=== PATIENT | male | born 1950 | race Caucasian/White ===

== ENCOUNTER 2017-05-17 10:17 | Day surgery (SDC) | payer BC ==
[2017-05-17] MEDS ORDERED: Sodium Chloride 0.9% 20 ML ONE (10:37)
[2017-05-17] MEDS ORDERED: diphenhydrAMINE 25 MG CAP PO SCH (11:15)
[2017-05-17] MEDS ORDERED: Acetaminophen 500 MG TAB PO SCH (11:15)
[2017-05-17 17:43] VITALS: BP 148/71; TEMP 98.4
[2017-05-17 18:18] LABS: Band 13 % (5-11); Eosinophils 3 % (0-10); Hemoglobin 9.3 g/dL (14.0-18.0); Lymphocytes 27 % (21-51); MDiff Complete? YES; Macrocytosis SLIGHT = 6-15 cells (100X) (0-5/hpf); Mean Corpuscular HGB CONC 34.1 g/dL (32.0-36.0); Mean Corpuscular Hemoglobin 32.6 pg (27.0-31.0); Mean Corpuscular Volume 95.5 fl (80.0-94.0); Mean Platelet Volume 7.2 fL (7.4-10.4); Metamyelocyte 5 % (0-0); Monocytes 16 % (0-10); Myelocyte 1 % (0-0); Neutrophil 35 % (42-75); PLT Morphology Comment Appears Decreased; Platelet Count 43 thou/uL (130-400); RBC Distribution Width 15.2 % (11.5-14.5); Red Blood Cell (RBC) Count 2.85 mill/uL (4.70-6.10); White Blood Cell (WBC) Count 2.7 thou/uL (4.8-10.8)
== END 2017-05-17 17:34 | disposition home or self-care (01) ==
LOC: ONC/OP 10:17
PROVIDERS: ATTEND Internal Medicine Hematology & Oncology
PROC: 30233N1 Transfusion of Nonautologous Red Blood Cells into Peripheral Vein, Percutaneous Approach (ICD-10-PCS; principal; 2017-05-17)
DX: D64.9 Anemia, unspecified (principal); D69.59 Other secondary thrombocytopenia; Z88.0 Allergy status to penicillin
CPT/HCPCS: 36415; 36430; 80053; 82248; 83615; 84100; 84550; 85025; 86850; 86900; 86901; A4216; P9016; P9035

== ENCOUNTER 2017-05-21 15:17 | Inpatient (IN) | payer BC ==
[~2017-05-21 15:17] MED LIST: ISOVUE-370 76%-LOCM 1 ML ONE
--- NOTE | 2017-05-21 16:23 | CT ---
CT ANGIO OF CHEST WITH CONTRAST: HISTORY: Coughing up blood. History of myeloma. Undergoing chemotherapy. COMPARISON: None. TECHNIQUE: CT angiogram chest performed after the intravenous administration of contrast. Three-D rendering is provided. FINDINGS: Evaluation for pulmonary embolus phase of contrast. There are what appear to be a few peripheral chelsea ling defects in the lower lobe pulmonary arteries likely artifactual. No definite proximal segmental pulmonary arterial filling defect. Aortic contour is nonaneurysmal. Pulmonary trunk measures 32 mm, abnormally dilated. No pericardial effusion. There are coronary artery calcifications, moderate. There are a few flame-shaped areas of central lobular ground-glass and solid opacities in the upper l obes bilaterally, lingula, right middle lobe, and most severe in the right lower lobe suggesting mult ifocal pneumonia. Hemorrhage is also a possibility given the peripheral ground-glass and central mando id component. Upper abdomen evaluation is limited. There are innumerable lytic lucencies throughout the spine. No pathologic compression fracture thora cic spine is appreciated. Lucencies are seen throughout the axial skeleton between the ribs, sternum , and manubrium. Old right 5th rib neck fracture. There is a healing right lateral 7th and 9th rib fractures. Probable old and healing left-sided rib fractures. IMPRESSION: 1. Within the limits of this examination, no proximal segmental pulmonary arterial filling defect. 2. Extensive opacity throughout the upper lobe, lingula, right middle lobe, and lower lobes, worseni ng right lower lobe. The opacities have central solid component peripheral ground-glass. Atypical p rogressive infectious process is felt most likely along with a component of hemorrhage given the yoly pheral ground-glass. 3. Extensive lytic lucencies throughout the axial skeleton corresponding to patient's myeloma. 4. Multiple bilateral rib fractures in different stages of healing. POS: KAYYLN
[2017-05-21] MEDS ORDERED: Cefepime 2 GM/10 ML SYR ONE (16:30)
[2017-05-21] MEDS ORDERED: Acetaminophen 500 MG TAB ONE (16:38)
[2017-05-21] MEDS ORDERED: Azithromycin 500 MG in Sodium Chloride 0.9% 250 ML 250 ML IVPB SCH (16:45)
[2017-05-21] MEDS ORDERED: Ondansetron ODT 4 MG TAB SL PRN (18:01)
[2017-05-21] MEDS ORDERED: Ondansetron HCl/PF 4 MG/2 ML Vial IVP PRN ×2 (18:01→18:49)
[2017-05-21 18:17] LABS: Reticulocyte Count 0.5 % (0.5-1.5)
[2017-05-21 18:18] LABS: Anion Gap 11 mmol/L (10-20); BUN (Urea Nitrogen) 36 mg/dL (8.4-25.7); CRP (Inflammatory) 5.04 mg/dL (= or < 0.5); Calc. Creatinine Clearance 0 mL/min (70-130); Carbon Dioxide 19 mmol/L (23-31); Chloride 108 mmol/L (98-107); Estimated GFR-MDRD 55; Glucose 108 mg/dL (80-115); Magnesium 1.3 mg/dL (1.6-2.6); Potassium 3.6 mmol/L (3.5-5.1); Sodium 134 mmol/L (136-145)
[2017-05-21 18:22] LABS: Hemoglobin 7.5 g/dL (14.0-18.0); Mean Corpuscular HGB CONC 34.7 g/dL (32.0-36.0); Mean Corpuscular Hemoglobin 32.8 pg (27.0-31.0); Mean Corpuscular Volume 94.6 fl (80.0-94.0); Mean Platelet Volume 10.9 fL (7.4-10.4); Platelet Count 11 thou/uL (130-400); RBC Distribution Width 15.4 % (11.5-14.5); White Blood Cell (WBC) Count 0.4 thou/uL (4.8-10.8)
[2017-05-21] MEDS ORDERED: Ondansetron ODT 4 MG TAB PO PRN (18:49)
[2017-05-21] MEDS ORDERED: Mag-Al 1200 mg/1200 mg/30 ML UDCUP PO PRN (18:49)
[2017-05-21] MEDS ORDERED: Senokot 8.6 MG TAB PO PRN (18:49)
[2017-05-21] MEDS ORDERED: Nitroglycerin 0.4 MG TAB (25 Tab Bottle) PO PRN (18:49)
[2017-05-21] MEDS ORDERED: Calcium Carbonate 500 MG ChewTAB PO PRN (18:49)
[2017-05-21] MEDS ORDERED: VANCOMYCIN/ RENALLY ADJUST ANTIBIOTICS IVPB PRN (18:55)
[2017-05-21] MEDS ORDERED: Sodium Chloride 0.9% 1,000 ML IV SCH ×2 (19:00→20:15)
[2017-05-21] MEDS ORDERED: Meropenem 1 GM in Sodium Chloride 0.9% 100 ML IVPB SCH (19:00)
[2017-05-21] MEDS ORDERED: Magnesium 2 GM/NS 0.9% 100 ML 2 GM in Premix Bag 1 BAG IVPB SCH (19:30)
[2017-05-21] MEDS ORDERED: Acetaminophen 325 MG TAB PO PRN (20:44)
[2017-05-21] MEDS ORDERED: Vancomycin HCl 1.25 GM in Sodium Chloride 0.9% 250 ML 250 ML IVPB SCH (21:00)
--- NOTE | 2017-05-21 21:12 | HP ---
PRIMARY CARE PHYSICIAN: Dr. Drake Mckeon at [facility]. PRIMARY ONCOLOGIST: Dr. Hugo. CHIEF COMPLAINT: Generalized weakness with cough and fever. HISTORY OF PRESENT ILLNESS: Patient is a 66-year-old male with multiple myeloma, currently on chemot herapy who presented to the emergency room at [facility] with the above complaints. He was transferred to this facility for hospital admission. Over the past 3-4 weeks, patient has on and off shortness of breath along with intermittent chest shelbie n. He was evaluated by Cardiology, Dr. Lagunas and an outpatient stress test has been ordered. Over the last one week, his shortness of breath is progressively getting worse. It was associated with so me productive cough. He also felt febrile with intermittent chills. Last night, he had hemoptysis. His last chemotherapy was 2 days ago. He also had of PRBC and platelet transfusion earlier this wee k. He denies any nausea, vomiting, diarrhea, dysuria, hematuria, urgency or sick contacts. In the emergency room at [place], his initial vital signs showed temperature 103.4, respiration of 24 , pulse rate of 118 with a blood pressure 161/73 with O2 saturation 94% on room air. His chest x-ray was negative for infiltrate. He received aspirin, sublingual nitroglycerin with IV fluids and merop enem after blood cultures. Flu testing was negative. His CBC showed WBC of 0.8 with platelet count of 15 and hemoglobin of 7.7. His albumin was 2.0 with total protein of 11.9, bicarbonate of 19, BUN of 38, creatinine 1.36. Urinalysis was negative for bacteria or WBC. He was transferred to this [facility] for hospital admission. The case was discussed with the ER physician at [facility] as wel l as Dr. Hugo. At this facility, he underwent a CT angiogram of the chest that showed extensive opacity throughout t he upper lobe lingula, right middle lobe and lower lobe consistent with atypical progressive infectio us process. He also had some component of hemorrhage given and peripheral ground glass. Please note that patient also had some hemoptysis yesterday. PAST MEDICAL HISTORY: 1. Multiple myeloma, currently on chemotherapy. 2. Pancytopenia with intermittent transfusion per Dr. Hugo. 3. Hypertension. 4. Hypothyroidism. 5. History of stem cell transplant. 6. Diverticulosis. 7. Hyperlipidemia. 8. Impaired fasting glucose. PAST SURGICAL HISTORY: 1. Stem cell transplant. 2. Hernia repair. ALLERGIES: PENICILLIN. CURRENT HOME MEDICATIONS: To be verified with the family. He is unable to recall all of his home me dications. SOCIAL HISTORY: Patient currently lives at home with his family. He is independent of activities of daily living. He denies any current use of smoking, alcohol or drug use. FAMILY HISTORY: Mother with congestive heart failure. REVIEW OF SYSTEMS: The following complete review of systems was negative, unless otherwise mentioned in the HPI or below: Constitutional: Weight loss or gain, ability to conduct usual activities. Sk in: Rash, itching. Eyes: Double vision, pain. ENT/Mouth: Nose bleeding, neck stiffness, pain, te nderness. Cardiovascular: Palpitations, dyspnea on exertion, orthopnea. Respiratory: Shortness of breath, wheezing, cough, hemoptysis, fever or night sweats. Gastrointestinal: Poor appetite, abdom inal pain, heartburn, nausea, vomiting, constipation, or diarrhea. Genitourinary: Urgency, frequenc y, dysuria, nocturia. Musculoskeletal: Pain, swelling. Neurologic/Psychiatric: Anxiety, depressio n. Allergy/Immunologic: Skin rash, bleeding tendency. PHYSICAL EXAMINATION: VITAL SIGNS: As discussed above. His temperature at this facility was 102.3. GENERAL: A 66-year-old male, ill appearing. HEENT: Head is atraumatic, normocephalic. Sclerae are anicteric. No oral lesion. NECK: Supple, no JVD appreciated. No carotid bruit. LUNGS: Showed bibasilar crackles with scattered rhonchi. No wheezing. Lungs were symmetrical. Tra richi midline. HEART: S1, S2 present. Regular rate and rhythm. No significant rubs, gallops or murmurs appreciate d. ABDOMEN: Soft, nontender, bowel sounds present. EXTREMITIES: No edema or calf tenderness. NEUROLOGIC: Grossly nonfocal, moves all four extremities. Power was 5/5 in all extremities. PSYCHIATRY: Alert, awake, oriented x3. SKIN: Warm and dry. Several petechiae noted. LYMPH NODES: No palpable lymph nodes in the neck. PERIPHERAL VASCULAR: Radial pulses palpable bilaterally. MUSCULOSKELETAL: No joint swelling or tenderness. LABORATORY FINDINGS: As discussed above. Repeat platelet count at this facility was 11 with WBC of 0.4, reticulocytes 0.5, magnesium 1.3, creatinine of 1.32 with CRP 5.0. IMAGING: CT scan of the chest by my review as discussed above. IMPRESSION: 1. Neutropenic fever/sepsis due to atypical pneumonia. 2. History of multiple myeloma on chemotherapy. 3. Pancytopenia, probably secondary to chemotherapy. 4. Thrombocytopenia with platelet count of 11. 5. Neutropenia with a leukocyte count of 0.4. 6. Hypertension. 7. Hypothyroidism. 8. Metabolic acidosis. 9. Chronic kidney disease stage 3. 10. Moderate protein-calorie malnutrition. 11. Hyponatremia. 12. Elevated inflammatory markers. 13. Hypomagnesemia. 14. Extensive lytic lesion on the CT secondary to multiple myeloma. PLAN: Patient will be monitored in the Oncology Unit. Empiric antibiotics will be continued. We wi ll consult Oncology, Pulmonary and Infectious Disease in a.m. Patient is allergic to PENICILLIN. He received meropenem in the emergency room which will be continued along with vancomycin and azithromy johnny. There is a concern of pulmonary hemorrhage on the CT. Patient also had some hemoptysis earlier . Gentle intravenous hydration. We will also get an echocardiogram since this was planned by Dr. Berenice melvin. We will also add BNP and troponin. We will also get respiratory viral panel to probably rule out influenza. His influenza testing at [place] was negative. Neutropenic diet. Repeat labs in a.m . Plan of care was discussed with the patient and the family in detail, they stated understanding.
[2017-05-21] MEDS: Meropenem 1 GM in Sterile Water 20 ML SLOW IVP SCH (22:06)
[2017-05-21] MEDS: Sodium Chloride 0.65% Nasal 44 ML BOT EA NARE SCH (22:18)
[2017-05-21] MEDS: Famotidine 20 MG TAB PO SCH (22:19)
[2017-05-21 22:27] LABS: Troponin I 0.063 ng/mL (< 0.028)
[2017-05-22] MEDS: Meropenem 1 GM in Sterile Water 20 ML SLOW IVP SCH ×3 (04:00→20:36)
[2017-05-22 04:30] LABS: White Blood Cell (WBC) Count 0.6 thou/uL (4.8-10.8)
[2017-05-22 04:33] LABS: ALT (SGPT) 22 U/L (8-55); AST (SGOT) 15 U/L (5-34); Albumin 1.9 g/dL (3.4-4.8); Alkaline Phosphatase 27 U/L (40-150); Anion Gap 10 mmol/L (10-20); BUN (Urea Nitrogen) 32 mg/dL (8.4-25.7); Bilirubin, Total 0.8 mg/dL (0.2-1.2); Calc. Creatinine Clearance 69 mL/min (70-130); Calcium 7.9 mg/dL (7.8-10.44); Carbon Dioxide 22 mmol/L (23-31); Chloride 108 mmol/L (98-107); Estimated GFR-MDRD 52; Globulin 7.5 g/dL (2.4-3.5); Glucose 99 mg/dL (80-115); Phosphorus 4.1 mg/dL (2.3-4.7); Potassium 3.7 mmol/L (3.5-5.1); Protein, Total 9.4 g/dL (5.8-8.1); Sodium 136 mmol/L (136-145)
[2017-05-22 05:09] LABS: Band 12 % (5-11); Hemoglobin 6.9 g/dL (14.0-18.0); Hypochromia SLIGHT = 6-15 cells (100X) (0-5/hpf); Lymphocytes 20 % (21-51); MDiff Complete? YES; Macrocytosis SLIGHT = 6-15 cells (100X) (0-5/hpf); Mean Corpuscular Hemoglobin 32.3 pg (27.0-31.0); Mean Corpuscular Volume 94.9 fl (80.0-94.0); Mean Platelet Volume 7.7 fL (7.4-10.4); Monocytes 32 % (0-10); Myelocyte 4 % (0-0); Neutrophil 32 % (42-75); Nucleated RBC 1 % (0); PLT Morphology Comment Appears Decreased; Platelet Count 43 thou/uL (130-400); RBC Distribution Width 15.5 % (11.5-14.5); Red Blood Cell (RBC) Count 2.15 mill/uL (4.70-6.10)
[2017-05-22] MEDS: Docusate 100 MG CAP PO SCH (08:44)
[2017-05-22] MEDS: Famotidine 20 MG TAB PO SCH ×2 (08:44→21:05)
[2017-05-22] MEDS: Sodium Chloride 0.65% Nasal 44 ML BOT EA NARE SCH ×3 (08:44→20:45)
[2017-05-22] MEDS: Vancomycin HCl 1 GM in Premix Bag 1 BAG IVPB SCH ×2 (08:45→20:43)
[2017-05-22] MEDS ORDERED: FLU VACC QS2017-18 36 mo. & older 0.5 ML SYRINGE IM ONE (09:00)
[2017-05-22] MEDS ORDERED: Prevnar 13-Val Conj/PF 0.5 ML SYRINGE IM ONE (09:00)
[2017-05-22] MEDS: Acetaminophen 325 MG TAB PO PRN ×2 (15:41)
--- NOTE | 2017-05-22 16:18 | PDOC.PN ---
- Subjective Encounter Start Date: 05/22/17 Encounter Start Time: 11:00 Patient seen and examined. Feels somewhat better. No CP/palpitations. No overnight events - Objective Resuscitation Status: Resuscitation Status FULL:Full Resuscitation MAR Reviewed: Yes Vital Signs & Weight: Vital Signs (12 hours) Temp Pulse Pulse Resp BP BP Pulse Ox 05/22/17 16:13 100 24 H 05/22/17 15:53 100.4 F H 102 H 28 H 134/63 97 05/22/17 15:50 100.4 F H 102 H 28 H 134/63 98 05/22/17 15:35 101 F H 100 28 H 130/60 97 05/22/17 12:12 22 H 05/22/17 12:00 97.8 F 100 28 H 137/65 98 05/22/17 08:00 98.5 F 96 20 95 05/22/17 07:25 98.5 F 96 20 140/65 95 Weight Admit Weight 198 lb Weight 198 lb I&O: 05/21/17 05/22/17 05/23/17 06:59 06:59 06:59 Intake Total 440 0 Output Total 1200 Balance -760 0 Result Diagrams: 05/22/17 03:57 05/22/17 03:57 Phys Exam - Physical Examination Constitutional: NAD (ill appearing) Neck: no JVD Respiratory: no wheezing Scat rhonchi/rales, Symmetrical Cardiovascular: RRR, no rub no heaves/pulsations Gastrointestinal: soft, non-tender, no distention, positive bowel sounds Musculoskeletal: no edema Neurological: moves all 4 limbs Psychiatric: normal affect, A&O x 3 Dx/Plan - Plan plan discussed w/ family, continue antibiotics, PT/OT, DVT proph w/SCDs (no Heparin due to low plts) IMPRESSION: 1. Neutropenic fever/sepsis due to atypical pneumonia & UTI. on Vanc/ Azithromycin/Meropenem 2. History of multiple myeloma on chemotherapy. 3. Pancytopenia, probably secondary to chemotherapy. (Anemia/Thrombocytopenia/ Neutropenia) 4. Hemoptysis - due to #1 & thrombocytopenia 5. Elevated BNP - r/o CHF. Elevated troponins prob due to sepsis 6. Hypertension. 7. Hypothyroidism. 8. Metabolic acidosis. 9. Chronic kidney disease stage 3. 10. Moderate protein-calorie malnutrition. 11. Hyponatremia. 12. Elevated inflammatory markers. 13. Hypomagnesemia. 14. Extensive lytic lesion on the CT secondary to multiple myeloma. PLAN: * Blood cultures at [facility] - pending. Urine culture today showing >100K GNR * Cont Atbx * Transfuse 1 unit PRBC * GSF today per Onc * Await ID/Pulm input * Cont to monitor * Resume home meds. * Await Echo. * AM labs * Resume Levothyroxine/[place] Review of Systems - Review of Systems Respiratory: Cough, Sputum Cardiovascular: negative: chest pain, palpitations, orthopnea, paroxysmal nocturnal dyspnea, edema, light headedness Gastrointestinal: negative: Nausea, Vomiting, Abdominal Pain, Diarrhea, Constipation, Melena, Hematochezia - Medications/Allergies Allergies/Adverse Reactions: Allergies Allergy/AdvReac Type Severity Reaction Status Date / Time Penicillins Allergy Verified 05/21/17 19:38 Medications: Current Medications Acetaminophen (Tylenol) 650 mg PO Q4H PRN PRN Reason: Headache/Fever or Pain Last Admin: 05/22/17 15:41 Dose: 650 mg Hydrocodone Bitart/Acetaminophen ([place] 5/325) 1 tab PO Q6HR PRN PRN Reason: Severe Pain (7-10) Al Hydroxide/Mg Hydroxide (Maalox) 30 ml PO Q6H PRN PRN Reason: Heartburn or Indigestion Calcium Carbonate (Tums) 1,000 mg PO Q4H PRN PRN Reason: Heartburn or Indigestion Docusate Sodium (Colace) 100 mg PO DAILY [facility] Last Admin: 05/22/17 08:44 Dose: 100 mg Famotidine (Pepcid) 20 mg PO BID [facility] Last Admin: 05/22/17 08:44 Dose: 20 mg Azithromycin 500 mg/ Sodium (Chloride) 250 mls @ 250 mls/hr IVPB 1700 [facility] Vancomycin HCl 1 gm/ Device 200 mls @ 200 mls/hr IVPB Q12HR [facility] Last Admin: 05/22/17 08:45 Dose: 200 mls Meropenem 1 gm/ Sterile Water 20 mls @ 240 mls/hr SLOW IVP 0400,1200,2000 [facility] Last Admin: 05/22/17 12:01 Dose: 20 mls Sodium Chloride (Normal Saline 0.9%) 1,000 mls @ 50 mls/hr IV .Q20H [facility] Levothyroxine Sodium (Synthroid) 25 mcg PO 0600 [facility] Miscellaneous Medication (Pharmacy To Dose) 1 each IVPB PRN PRN PRN Reason: Pharmacy to dose Nitroglycerin (Nitrostat) 0.4 mg PO Q5MIN PRN PRN Reason: Chest Pain Ondansetron HCl (Zofran Odt) 4 mg PO Q6H PRN PRN Reason: Nausea/Vomiting Ondansetron HCl (Zofran) 4 mg IVP Q6H PRN PRN Reason: Nausea/Vomiting Senna (Senokot) 2 tab PO HSPRN PRN PRN Reason: Constipation Sodium Chloride (Flush - Normal Saline) 10 ml IVF PRN PRN PRN Reason: Saline Flush Last Admin: 05/22/17 04:00 Dose: 10 ml Sodium Chloride ([place] Nasal [place] 0.65%) 0 ml EA NARE TID [facility] Last Admin: 05/22/17 15:29 Dose: 1 spr Sodium Chloride (Flush - Normal Saline) 10 ml IVF Q12HR [facility] Last Admin: 05/22/17 08:45 Dose: Not Given Tbo-Filgrastim (Granix) 480 mcg SC 1500 [facility] Last Admin: 05/22/17 15:28 Dose: 480 mcg Valacyclovir HCl (Valtrex) 500 mg PO DAILY [facility]
--- NOTE | 2017-05-22 17:05 | CON ---
DATE OF CONSULTATION: 05/22/2017 REASON FOR CONSULTATION: Multiple myeloma with neutropenic fever. HISTORY OF PRESENT ILLNESS: Mr. Childers is a pleasant 66-year-old male, who was diagnosed originally in 2006 with multiple myeloma. He has undergone multiple treatments including stem cell transplant. Fritz laura most recently progressed with anemia and increasing IgG. He was started on Kyprolis, Revlimid, and dexamethasone. He received cycle #1 on 05/18/2017 and 05/19/2017. Yesterday he presented to the em ergency room with progressive shortness of breath. He was noted to be pancytopenic. Mr. Childers's coun ts were significantly lower at starting Kyprolis. His baseline white count was 2.6. He had hemoglob in of 8.6 and platelet count of 50. On this admission, his white count was 0.4, hemoglobin was 7.5, and his platelet count was 11,000. He did get transfused 1 unit of platelets. His white count is be tter today at 0.6. His platelet count has dropped slightly to 6.9. He has been started on empiric a ntibiotics and given IV fluids, has been pancultured. He had a chest CT performed which was signific ant for an infectious process, likely pneumonia. The patient's temperature was elevated at the [facility] ER. Since this admission, his highest temperature has been 100.6. PAST MEDICAL HISTORY: 1. Multiple myeloma. 2. Hypertension. 3. Hypothyroidism. PAST SURGICAL HISTORY: 1. Stem cell transplant. 2. Hernia repair. ALLERGIES: PENICILLIN. HOME MEDICATIONS: 1. Norvasc 10 mg daily. 2. Hydrochlorothiazide 12.5 mg on Wednesday, Wednesday, and Wednesday. 3. [place] p.r.n. 4. Levothyroxine 25 mcg daily. 5. Valtrex 500 mg daily. FAMILY HISTORY: Noncontributory. SOCIAL HISTORY: He is , has grown children, lives with his spouse in [place]. No alcohol, to bacco, or illicit drug use. REVIEW OF SYSTEMS: CONSTITUTIONAL: Positive for fever, chills, and weight loss. EYES: No blurred or double vision. ENT: No pain, hoarseness, sore throat, or dysphagia. CARDIOVASCULAR: No chest pain, palpitations, or syncope. RESPIRATORY: Positive for shortness of breath and dyspnea on exertion and cough. GASTROINTESTINAL: No nausea, vomiting, diarrhea, constipation, or abdominal pain. GENITOURINARY: No dysuria or hematuria. MUSCULOSKELETAL: No joint or back pain. SKIN: No rash. HEMATOLOGIC: No bleeding, bruising, or clotting. NEUROLOGIC: Positive for weakness. No headache, numbness, tingling, or seizure activity. PSYCHIATRIC: No anxiety or depression. PHYSICAL EXAMINATION: VITAL SIGNS: Temperature is 97.8, pulse is 100, respiratory rate 22, BP is 137/65. He is 98% on 2 l iters. GENERAL: This is an ill-appearing male, in no acute distress. HEENT: Normocephalic, atraumatic. Pupils are equal and reactive to light. NECK: Supple. CARDIOVASCULAR: Regular rate and rhythm. LUNGS: Clear. ABDOMEN: Soft and nontender. Bowel sounds are positive. EXTREMITIES: No clubbing, cyanosis, or edema. SKIN: No rash. HEMATOLOGICAL: There is no petechia or purpura. NEUROLOGICAL: Nonfocal. PSYCHIATRIC: The patient is alert and oriented and appropriate. PERTINENT LABORATORY AND X-RAYS: Current WBC 600, hemoglobin 6.9, hematocrit 20.4, platelet count is 43,000, 32% neutrophils, 12% bands, 20% lymphocytes, 32% monocytes. Sodium is 136, potassium 3.7, c hloride 108, CO2 is 22, BUN is 32, creatinine 1.37. Lactic acid is 1, calcium 7.5, phosphorus 4.1, m agnesium 2, total bilirubin is 0.8, AST is 15, ALT is 22, alkaline phosphatase is 27. Troponin is 0. 063. BNP is 603.5. Serum total protein is 9.4, albumin 1.9, globulin 7.5. Radiology, per HPI. IMPRESSION: 1. Multiple myeloma, status post cycle #1 of Kyprolis, Revlimid, and dexamethasone. 2. Pancytopenia. 3. Neutropenic fever. 4. Pneumonia. DISCUSSION: The patient has been started on empiric antibiotics including cefepime and vancomycin. We will start Neupogen injection today and monitor his CBC. We transfused 1 unit of packed RBCs yest rose. ID has been consulted and appreciate their input, appreciated Sounds management. Thank you for the consult.
--- NOTE | 2017-05-22 18:05 | CON ---
DATE OF CONSULTATION: 05/22/2017 CONSULTING PHYSICIAN: Dr. Rutherford. REASON FOR CONSULTATION: Atypical pneumonia. HISTORY OF PRESENT ILLNESS: This is a 66-year-old male who provides history along with his . I have also reviewed records and the chart. He was brought to this facility from the [facility] room yesterday with a brief history of increasing shortness of breath and chest pain. He diamond s been coughing up blood over the last several days. He has been taking chemotherapy twice a week fo r the last several weeks for multiple myeloma. He was admitted with neutropenic sepsis and atypical infiltrates on a CT scan. He says he has never had problems with his lungs in the past. PAST MEDICAL HISTORY: 1. Multiple myeloma. 2. Pancytopenia, requiring intermittent transfusions. 3. Hypertension. 4. Hypothyroidism. 5. Stem cell transplant for the myeloma. 6. Diverticulosis. 7. Hyperlipidemia. PAST SURGICAL HISTORY: 1. Stem cell transplant. 2. Hernia repair. ALLERGIES: PENICILLIN. SOCIAL HISTORY: He is a lifetime nonsmoker, does not consume alcohol. 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 OUTPATIENT MEDICATIONS: Levothyroxine 25 mcg daily, Byers 1-2 tablets every 4 hours as needed, Norva sc 10 mg daily, Valtrex 500 mg daily, hydrochlorothiazide 12.5 mg 3 times weekly. ALLERGIES: PENICILLIN. REVIEW OF SYSTEMS: Remarkable for the hemoptysis, fatigue. Otherwise, 12-point review of systems is negative. PHYSICAL EXAMINATION: VITAL SIGNS: Temperature 97.8 with a T-max of 100.6, pulse 100, respirations 22, O2 saturation 98%, blood pressure 137/65. GENERAL: He is lying supine in bed, does not appear to be in any overt distress. HEENT: Unremarkable except for alopecia. Oropharynx shows no lesions. NECK: Without adenopathy, JVD, or bruits. LUNGS: He has inspiratory crackles bilaterally heard best posteriorly. CARDIOVASCULAR: S1, S2 regular, without murmur. ABDOMEN: Soft and nontender without hepatosplenomegaly. EXTREMITIES: No clubbing, cyanosis, or edema. He has bruising over his left arm. NEUROLOGIC: He moves all 4 extremities without difficulty. LABORATORY DATA: White blood cell count 0.6, hemoglobin 6.9, hematocrit 20.4, platelet count 43. So dium 136, potassium 3.7, chloride 108, CO2 is 22, BUN 32, creatinine 1.4, glucose 99. His chest x-ray shows atypical infiltrative changes bilaterally in a bronchocentric pattern. This ma y be indicative of focal bleeding or perhaps pneumonitis, there is more concentrated area in the righ t lower lobe. ASSESSMENT: 1. Neutropenic sepsis with bilateral pneumonia versus alveolar hemorrhage. 2. Multiple myeloma. 3. Status post chemotherapy. PLAN: The patient is already started antibiotics which would decrease any ill by bronchoscopy. He i s currently on azithromycin, meropenem, and vancomycin. He is going to be seen by Dr. Vazquez at some point. The patient is already improved in the first 12 hours of therapy. He is also receiving Neupo gen and for some reason, he suffers a setback then bronchoscopy can be entertained. If Dr. Vazquez fee ls strongly that other atypical entities need to be ruled out at this time, I could proceed with bron choscopy. I will follow with you. Thank you for allowing me to participate in this gentleman's care.
[2017-05-22] MEDS: Azithromycin 500 MG in Sodium Chloride 0.9% 250 ML 250 ML IVPB SCH (18:37)
[2017-05-22 18:45] LABS: Legionella Urinary Ag Negative (Negative); Strep pneumo Urine Ag NEGATIVE (NEGATIVE)
[2017-05-22] MEDS: Sodium Chloride 0.9% 1,000 ML IV SCH ×3 (20:36→21:42)
[2017-05-23] MEDS: Meropenem 1 GM in Sterile Water 20 ML SLOW IVP SCH ×3 (03:54→20:16)
[2017-05-23 06:05] LABS: ALT (SGPT) 16 U/L (8-55); AST (SGOT) 12 U/L (5-34); Albumin 1.8 g/dL (3.4-4.8); Alkaline Phosphatase 27 U/L (40-150); Anion Gap 9 mmol/L (10-20); BUN (Urea Nitrogen) 29 mg/dL (8.4-25.7); Band 36 % (5-11); Bilirubin, Total 0.7 mg/dL (0.2-1.2); Calc. Creatinine Clearance 79 mL/min (70-130); Calcium 8.2 mg/dL (7.8-10.44); Carbon Dioxide 22 mmol/L (23-31); Chloride 109 mmol/L (98-107); Estimated GFR-MDRD 60; Globulin 6.9 g/dL (2.4-3.5); Glucose 109 mg/dL (80-115); Hemoglobin 6.5 g/dL (14.0-18.0); Hypochromia SLIGHT = 6-15 cells (100X) (0-5/hpf); Lymphocytes 24 % (21-51); MDiff Complete? YES; Magnesium 1.7 mg/dL (1.6-2.6); Mean Corpuscular HGB CONC 34.1 g/dL (32.0-36.0); Mean Corpuscular Hemoglobin 32.5 pg (27.0-31.0); Mean Corpuscular Volume 95.2 fl (80.0-94.0); Monocytes 20 % (0-10); Neutrophil 20 % (42-75); Nucleated RBC 1 % (0); PLT Morphology Comment Appears Decreased; Platelet Count 34 thou/uL (130-400); Potassium 3.3 mmol/L (3.5-5.1); Protein, Total 8.7 g/dL (5.8-8.1); RBC Distribution Width 15.1 % (11.5-14.5); Red Blood Cell (RBC) Count 1.99 mill/uL (4.70-6.10); Sodium 137 mmol/L (136-145); White Blood Cell (WBC) Count 1.3 thou/uL (4.8-10.8)
[2017-05-23] MEDS: Levothyroxine Sodium 25 MCG TAB PO SCH (06:14)
--- NOTE | 2017-05-23 07:54 | PDOC.PN ---
- Subjective Encounter Start Date: 05/23/17 Encounter Start Time: 07:53 Mr. Childers was seen in follow-up today. He says he is breathing a bit better today. He admits to having a large dark stool last night. He is also still feeling very fatigued. - Objective Resuscitation Status: Resuscitation Status FULL:Full Resuscitation MAR Reviewed: Yes Vital Signs & Weight: Vital Signs (12 hours) Temp Pulse Resp BP BP Pulse Ox 05/23/17 04:00 98.5 F 96 23 H 136/65 95 05/23/17 00:00 98.7 F 92 18 128/64 97 05/22/17 20:00 99.6 F 87 22 H 128/62 97 Weight Admit Weight 198 lb Weight 200 lb 7 oz I&O: 05/22/17 05/23/17 05/24/17 06:59 06:59 06:59 Intake Total 440 2500 Output Total 1200 700 Balance -760 1800 Result Diagrams: 05/23/17 05:24 05/23/17 05:24 Phys Exam - Physical Examination HEENT: PERRLA Respiratory: no wheezing, no rales, no rhonchi, clear to auscultation bilateral Cardiovascular: RRR, no significant murmur Gastrointestinal: soft, non-tender, positive bowel sounds Musculoskeletal: no edema Dx/Plan (1) Neutropenic fever Code(s): D70.9 - NEUTROPENIA, UNSPECIFIED; R50.81 - FEVER PRESENTING WITH CONDITIONS CLASSIFIED ELSEWHERE Status: Acute (2) Pneumonia, primary atypical Code(s): J18.9 - PNEUMONIA, UNSPECIFIED ORGANISM Status: Acute (3) Multiple myeloma Code(s): C90.00 - MULTIPLE MYELOMA NOT HAVING ACHIEVED REMISSION Status: Acute (4) Hypertension Code(s): I10 - ESSENTIAL (PRIMARY) HYPERTENSION Status: Acute (5) Hypothyroidism Code(s): E03.9 - HYPOTHYROIDISM, UNSPECIFIED Status: Acute (6) Pancytopenia due to antineoplastic chemotherapy Code(s): D61.810 - ANTINEOPLASTIC CHEMOTHERAPY INDUCED PANCYTOPENIA; T45.1X5A - ADVERSE EFFECT OF ANTINEOPLASTIC AND IMMUNOSUP DRUGS, INIT Status: Acute - Plan * Pancytopenia- his WBC count and platelet count have improved, but not his hemoglobin. He was reported to have a large dark stool. Will send is stool for occult blood. Transfuse another unit of RBC's and change Pepcid to Protonix * Pneumonia- improving clinically, less fever, - continue Vancomycin , Meropenem , and Azithromycin * HTN- blood pressure is stable * Hypokalemia- will replace.
[2017-05-23] MEDS ORDERED: Potassium Chloride 20 MEQ TAB PO SCH (08:00)
[2017-05-23 08:28] LABS: Vancomycin, Trough 12.5 ug/mL
[2017-05-23] MEDS: valACYclovir 500 MG TAB PO SCH (09:20)
[2017-05-23] MEDS: Docusate 100 MG CAP PO SCH (09:21)
[2017-05-23] MEDS: Sodium Chloride 0.65% Nasal 44 ML BOT EA NARE SCH ×3 (09:22→20:18)
[2017-05-23] MEDS: Vancomycin HCl 1.25 GM in Sodium Chloride 0.9% 250 ML 250 ML IVPB SCH ×2 (09:26→20:23)
--- NOTE | 2017-05-23 15:52 | PRG ---
DATE OF SERVICE: 05/23/2017 SUBJECTIVE: The patient feels much better today and had no acute complaints. PHYSICAL EXAMINATION: VITAL SIGNS: Temperature 97.9, pulse 82, respirations 20, O2 sat 98%, blood pressure 129/60. HEENT: Unremarkable. NECK: No JVD. LUNGS: Clear. CARDIAC: S1 and S2 regular. ABDOMEN: Soft. EXTREMITIES: No edema. LABORATORY DATA: White blood cell count , hemoglobin 6.5, hematocrit 19.0, and platelet count 3 4. Sodium 137, potassium 3.3, chloride 109, CO2 22, BUN 29, creatinine 1.2, and glucose 109. ASSESSMENT: Neutropenic sepsis with pneumonia. PLAN: Continue current antibiotics. Consider bronchoscopy if he has a setback, but right now he see ms to be progressing in the correct direction.
[2017-05-23] MEDS: Azithromycin 500 MG in Sodium Chloride 0.9% 250 ML 250 ML IVPB SCH (17:23)
[2017-05-23] MEDS: Sodium Chloride 0.9% 1,000 ML IV SCH (20:14)
--- NOTE | 2017-05-23 21:22 | CON ---
DATE OF CONSULTATION: 05/23/2017 REASON FOR CONSULTATION: Pneumonia. HISTORY OF PRESENT ILLNESS: A 66-year-old patient was diagnosed with multiple myeloma a few years ag o at [facility] by Dr. Rubio. She was then referred to [facility], had 2 st em cell transplants back to back and did well for a while. He subsequently developed recrudescence o f the process and was treated by Dr. Smith in [place], eventually transitioned to Dr. Hugo here in [facility]. He basically gets treatment whenever there is exacerbation of the process by monitoring via the usual settings. The patient more recently had been receiving Revlimid as well as carfilzomib, w hich is a proteasome inhibitor and Decadron. 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 He w as seen by Cardiology and an outpatient stress test had been ordered, but then the dyspnea became wor se with some productive cough and then he had temperature up to 104 and was admitted. This was assoc iated with worsening cough and hemoptysis. Initial findings showed temperature of 103.4, respiratory rate 24, pulse rate 118, BP 160/73 and O2 sat 94%. He had initial chest x-ray which did not show an y infiltrates. He was started on meropenem. Influenza test was negative. White cell count 0.8, berna telet count 15,000, hemoglobin 7.7, creatinine 1.36. Urinalysis showed no wbcs. The initial exam, t he patient was alert and oriented. There were bibasilar inspiratory crackles and rhonchi. The heart exam was not particularly remarkable. Abdomen was soft, nontender. He was able to move all 4 extre mities. Currently, Mr. Childers is sleeping and according to the , he is able to wake up, but he did not sleep very well last night because of worsening cough with increased sputum production. He has had no headaches, no sore throat, odynophagia, dysphagia, no back pain, chest pain, and has not recur red. He has had some hemoptysis still. Dyspnea has improved. No abdominal pain, no genitourinary s ymptoms, no diarrhea, no joint symptoms or skin disorder. PAST MEDICAL HISTORY: Multiple myeloma with prior 2 stem cell transplants, currently on chemotherapy after recurrence, hypertension, hypothyroidism, pancytopenia, diverticulosis, and hyperlipidemia. PAST SURGICAL HISTORY: Also includes hernia repair. ALLERGIES: PENICILLIN with rash. CURRENT MEDICATIONS: Tylenol, Grundy, Maalox, azithromycin, Tums, Colace, Synthroid, meropenem, Nitro stat, Zofran, Protonix, Senokot, Granix, Valtrex and vancomycin. SOCIAL HISTORY: Lives in [place], had been working up until just about a week and half ago. FAMILY HISTORY: Noncontributory. PHYSICAL EXAMINATION: VITAL SIGNS: Temperature max 101.0 yesterday at 3 p.m., it is currently 97.9, blood pressure 120/60, pulse 18-20, and O2 saturation 98%. SKIN: Shows a few petechiae, bruises on upper extremities. Patient has a peripheral IV access. No Oshea catheter, alopecia. HEENT: Ocular movements are conjugate. Sclerae white. Pupils are reactive. Conjunctivae pale. Or al cavity, moist mucosa, no thrush. Still quite a few teeth in place. NECK: Supple, no jugular venous distention or carotid bruits. LUNGS: With fairly symmetric breath sounds, a few scattered inspiratory crackles in dependent areas. No rhonchi. HEART: S1, S2, regular rate. No S3 or S4. ABDOMEN: Soft and not distended or tender. No ascites. No bladder distention. EXTREMITIES: No joint inflammatory activity. No edema. Pulses 1+ in dorsalis pedis. NEUROLOGIC: She is diffusely weak, but no focal weakness. He is sleeping at the time, but according to His cognitive function appears to be normal, as recently as just a couple of hours ago. LABORATORY DATA: Showed a white cell count up to 1.3, hemoglobin 6.5, MCV 95, platelets 34,000, and 20% neutrophils, 36% bands. Sodium 137, creatinine 1.21. Liver profile normal. Albumin 1.8, globul in 6.9. Vancomycin trough 12.5. Legionella haemophilus and strep pneumonia antigen negative. Respi ratory virus PCR negative. The CT of chest demonstrated bilateral diffuse subsegmental pulmonary inf iltrates, upper lobe lingula, right middle lobe and lower lobes, have a central solid component of pe ripheral ground-glass and extensive lytic lucencies throughout axial skeleton. ASSESSMENT: 1. Multiple myeloma, status post prior stem cell transplants x2, now with recrudescence being manage d with proteasome inhibitor plus Revlimid and Decadron. 2. Pancytopenia. 3. Fever with pneumonia. DISCUSSION: Differential diagnoses includes bacterial pneumonia with the usual pathogens were more o r some sort of less common pathogens associated with neutropenic status versus an atypical pathogen s uch as a fungal organism or mycobacterial pathogen. Pneumocystis is a concern, but appears to be les s likely in view of the early improvement with the current treatment. Pulmonary hemorrhage is a poss ibility, may be an additional factor in the infiltrates noted on CT scan. The proteasome inhibitor s eems to be associated with pneumonia. This probably is secondary consequence of the pancytopenia ind uced by the drug as well as the general immune deficiency associated with multiple myeloma. At this point, we will continue treatment with broad spectrum coverage as currently prescribed. We will subm it assays for pneumocystis and various other fungal pathogens and cytomegalovirus assays as well. If there is recrudescence of the respiratory symptoms for fever, then we will have to add antifungal co verage and may have to consider antipneumocystis coverage as well.
[2017-05-24] MEDS: Acetaminophen 325 MG TAB PO PRN (00:03)
[2017-05-24] MEDS: HYDROcodone/Acetaminophen 5/325 mg Tablet PO PRN ×3 (03:42→22:34)
[2017-05-24] MEDS: Meropenem 1 GM in Sterile Water 20 ML SLOW IVP SCH ×3 (03:44→20:35)
[2017-05-24] MEDS: Levothyroxine Sodium 25 MCG TAB PO SCH (05:57)
[2017-05-24 05:59] LABS: Hemoglobin 6.8 g/dL (14.0-18.0); Mean Corpuscular HGB CONC 33.6 g/dL (32.0-36.0); Mean Corpuscular Hemoglobin 31.4 pg (27.0-31.0); Mean Corpuscular Volume 93.3 fl (80.0-94.0); Mean Platelet Volume 9.4 fL (7.4-10.4); Platelet Count 24 thou/uL (130-400); RBC Distribution Width 17.3 % (11.5-14.5); Red Blood Cell (RBC) Count 2.18 mill/uL (4.70-6.10)
[2017-05-24 06:08] LABS: ALT (SGPT) 24 U/L (8-55); AST (SGOT) 18 U/L (5-34); Albumin 1.8 g/dL (3.4-4.8); Alkaline Phosphatase 32 U/L (40-150); Anion Gap 10 mmol/L (10-20); BUN (Urea Nitrogen) 31 mg/dL (8.4-25.7); Bilirubin, Total 0.5 mg/dL (0.2-1.2); Calc. Creatinine Clearance 84 mL/min (70-130); Calcium 8.3 mg/dL (7.8-10.44); Carbon Dioxide 21 mmol/L (23-31); Chloride 112 mmol/L (98-107); Estimated GFR-MDRD 65; Globulin 7.1 g/dL (2.4-3.5); Glucose 102 mg/dL (80-115); Potassium 3.7 mmol/L (3.5-5.1); Protein, Total 8.9 g/dL (5.8-8.1); Sodium 139 mmol/L (136-145)
[2017-05-24 06:25] LABS: Band 8 % (5-11); Lymphocytes 20 % (21-51); MDiff Complete? YES; Metamyelocyte 1 % (0-0); Monocytes 5 % (0-10); Neutrophil 65 % (42-75); PLT Morphology Comment Appears Decreased
--- NOTE | 2017-05-24 07:27 | PDOC.PN ---
- Subjective Encounter Start Date: 05/24/17 Encounter Start Time: 07:25 Mr. Childers says that he is feeling a little better. He is less short of breath. His cough is less. He sat up at the side of the bed without problems. - Objective Resuscitation Status: Resuscitation Status FULL:Full Resuscitation MAR Reviewed: Yes Vital Signs & Weight: Vital Signs (12 hours) Temp Pulse Resp BP BP Pulse Ox 05/24/17 03:39 98.3 F 75 16 146/79 H 97 05/23/17 23:51 98.2 F 87 20 137/68 97 05/23/17 20:00 98.7 F 87 16 97 Weight Admit Weight 198 lb Weight 200 lb 7 oz I&O: 05/23/17 05/24/17 05/25/17 06:59 06:59 06:59 Intake Total 2500 3830 Output Total 700 925 Balance 1800 2905 Result Diagrams: 05/24/17 05:32 05/24/17 05:32 Phys Exam - Physical Examination HEENT: PERRLA Respiratory: wheezing present + rhonchi bilaterally Cardiovascular: RRR, no significant murmur Gastrointestinal: soft, non-tender, positive bowel sounds Musculoskeletal: no edema Dx/Plan (1) Neutropenic fever Code(s): D70.9 - NEUTROPENIA, UNSPECIFIED; R50.81 - FEVER PRESENTING WITH CONDITIONS CLASSIFIED ELSEWHERE Status: Acute (2) Pneumonia, primary atypical Code(s): J18.9 - PNEUMONIA, UNSPECIFIED ORGANISM Status: Acute (3) Multiple myeloma Code(s): C90.00 - MULTIPLE MYELOMA NOT HAVING ACHIEVED REMISSION Status: Acute (4) Hypertension Code(s): I10 - ESSENTIAL (PRIMARY) HYPERTENSION Status: Acute (5) Hypothyroidism Code(s): E03.9 - HYPOTHYROIDISM, UNSPECIFIED Status: Acute (6) Pancytopenia due to antineoplastic chemotherapy Code(s): D61.810 - ANTINEOPLASTIC CHEMOTHERAPY INDUCED PANCYTOPENIA; T45.1X5A - ADVERSE EFFECT OF ANTINEOPLASTIC AND IMMUNOSUP DRUGS, INIT Status: Acute - Plan * Neutropenic fever due to Pneumonia- ID recommendations noted.-Continue Meropenem, Vancomycin, and Azithromycin * Neutropenia- improving * Thrombocytopenia- slightly worse- will monitor * Anemia- Hgb is at 6.8- will hold off on transfusion today, unless instructed to by Oncology * HTN- blood pressure is stable * Hypothyroidism- clinically euthyroid
[2017-05-24] MEDS: Vancomycin HCl 1.25 GM in Sodium Chloride 0.9% 250 ML 250 ML IVPB SCH ×2 (09:28→20:38)
[2017-05-24] MEDS: valACYclovir 500 MG TAB PO SCH (09:30)
[2017-05-24] MEDS: Docusate 100 MG CAP PO SCH (09:30)
[2017-05-24] MEDS: Sodium Chloride 0.65% Nasal 44 ML BOT EA NARE SCH ×3 (09:31→20:43)
--- NOTE | 2017-05-24 10:40 | PRG ---
DATE OF SERVICE: 05/24/2017 He is up and walking the halls today and looks good. PHYSICAL EXAMINATION: VITAL SIGNS: His temperature is 97.3, pulse 79, respiratory 20, O2 sat 95%, blood pressure 148/77. HEENT: Unremarkable. NECK: No JVD. LUNGS: Distant breath sounds, but clear. CARDIAC: S1 and S2 regular. ABDOMEN: Soft. EXTREMITIES: No edema. LABORATORY: White blood cell count 2, hematocrit 20, platelet count 24. Sodium 139, potassium 2.7, BUN 31, creatinine 1.1, glucose 102. Cultures demonstrate no growth to date. ASSESSMENT: Neutropenic sepsis. PLAN: Continue current antibiotics. Dr. Vazquez is seeing the patient. At some point he will need a follow up x-ray in 2-3 weeks. I will follow him with you.
--- NOTE | 2017-05-24 16:44 | PRG ---
DATE OF SERVICE: 05/24/2017 SUBJECTIVE: Sitting up, feels more energetic, little bit of loose stool. No respiratory symptoms. No abdominal pain. Voiding without difficulty. OBJECTIVE: VITAL SIGNS: T-max 98.6, has been afebrile for quite a while now. All other vital signs are not rem arkable. GENERAL: Awake, chronically ill appearing, but in no acute distress, oriented. LUNGS: With faint left basilar crackles, otherwise clear. No wheezing. HEART: S1, S2, regular rate. ABDOMEN: Slightly distended, but nontender. GENITOURINARY: No bladder distention. LABORATORY DATA: White cell count up to 2.0, hemoglobin 6.8, platelets 24. The total neutrophil count is improving, it is up to about 1500 at this time. Sodium 139, creatinine 1.14, which is improving as well. Respiratory-jain, PCR negative, cryptococcus antigen, serum negat juan carlos and the other assays are pending. ASSESSMENT AND DISCUSSION: Multiple myeloma and stem-cell transplants x2, now recrudescence being ma naged with proteasome inhibitor plus Revlimid and Decadron. Pancytopenia and fever with pneumonia. There is clear cut clinical improvement, so we must be dealing just with a bacterial pneumonia, which is responding to the antimicrobial regimen administered. The white cell count is improving as well and could envision a situation where he could be transitioned to levofloxacin or ciprofloxacin plus a zithromycin for discharge planning.
[2017-05-24] MEDS: Azithromycin 500 MG in Sodium Chloride 0.9% 250 ML 250 ML IVPB SCH (17:19)
[2017-05-24] MEDS: Sodium Chloride 0.9% 1,000 ML IV SCH (17:43)
[2017-05-24 20:21] LABS: Vancomycin, Trough 19.1 ug/mL
[2017-05-25] MEDS: Meropenem 1 GM in Sterile Water 20 ML SLOW IVP SCH ×3 (02:43→21:50)
[2017-05-25] MEDS: Sodium Chloride 0.9% 1,000 ML IV SCH (02:43)
[2017-05-25] MEDS ORDERED: guaiFENesin/Dextromethorphan 10 ML UDCUP PO PRN ×2 (03:29→09:20)
[2017-05-25 04:47] LABS: Hemoglobin 6.8 g/dL (14.0-18.0); Mean Corpuscular HGB CONC 33.5 g/dL (32.0-36.0); Mean Corpuscular Hemoglobin 31.6 pg (27.0-31.0); Mean Corpuscular Volume 94.3 fl (80.0-94.0); Mean Platelet Volume 9.4 fL (7.4-10.4); Platelet Count 22 thou/uL (130-400); RBC Distribution Width 17.1 % (11.5-14.5); Red Blood Cell (RBC) Count 2.14 mill/uL (4.70-6.10); White Blood Cell (WBC) Count 3.3 thou/uL (4.8-10.8)
[2017-05-25 05:12] LABS: Band 20 % (5-11); Eosinophils 2 % (0-10); Lymphocytes 16 % (21-51); MDiff Complete? YES; Metamyelocyte 4 % (0-0); Monocytes 10 % (0-10); Neutrophil 48 % (42-75); PLT Morphology Comment Appears Decreased
[2017-05-25] MEDS: Levothyroxine Sodium 25 MCG TAB PO SCH (06:44)
[2017-05-25] MEDS: HYDROcodone/Acetaminophen 5/325 mg Tablet PO PRN ×3 (06:46→20:46)
--- NOTE | 2017-05-25 07:57 | PDOC.PN ---
- Subjective Encounter Start Date: 05/25/17 Encounter Start Time: 07:55 Mr. Childers is feeling a little better today. He admits to quite a bit of coughing last night, productive of a whitish mucus, no blood. - Objective Resuscitation Status: Resuscitation Status FULL:Full Resuscitation MAR Reviewed: Yes Vital Signs & Weight: Vital Signs (12 hours) Temp Pulse Resp BP Pulse Ox 05/24/17 20:00 98.1 F 89 20 156/72 H 98 Weight Admit Weight 198 lb Weight 200 lb 7 oz I&O: 05/24/17 05/25/17 05/26/17 06:59 06:59 06:59 Intake Total 3830 1640 Output Total 925 Balance 2905 1640 Result Diagrams: 05/25/17 04:23 05/24/17 05:32 Phys Exam - Physical Examination HEENT: PERRLA + rhonchi, and wheezing at the base Cardiovascular: RRR, no significant murmur Gastrointestinal: soft, non-tender, positive bowel sounds Musculoskeletal: no edema Dx/Plan (1) Neutropenic fever Code(s): D70.9 - NEUTROPENIA, UNSPECIFIED; R50.81 - FEVER PRESENTING WITH CONDITIONS CLASSIFIED ELSEWHERE Status: Acute (2) Pneumonia, primary atypical Code(s): J18.9 - PNEUMONIA, UNSPECIFIED ORGANISM Status: Acute (3) Multiple myeloma Code(s): C90.00 - MULTIPLE MYELOMA NOT HAVING ACHIEVED REMISSION Status: Acute (4) Hypertension Code(s): I10 - ESSENTIAL (PRIMARY) HYPERTENSION Status: Acute (5) Hypothyroidism Code(s): E03.9 - HYPOTHYROIDISM, UNSPECIFIED Status: Acute (6) Pancytopenia due to antineoplastic chemotherapy Code(s): D61.810 - ANTINEOPLASTIC CHEMOTHERAPY INDUCED PANCYTOPENIA; T45.1X5A - ADVERSE EFFECT OF ANTINEOPLASTIC AND IMMUNOSUP DRUGS, INIT Status: Acute - Plan * Neutropenic fever and Pneumonia- continue the current antibiotics, and transition to oral once ok with ID * WBC count has improved * Platelet count has stayed about the same * HTN - blood pressure is stable * Encourage oral intake, and ambulation..
[2017-05-25] MEDS: Sodium Chloride 0.65% Nasal 44 ML BOT EA NARE SCH ×3 (09:10→21:58)
[2017-05-25] MEDS: Docusate 100 MG CAP PO SCH (09:10)
[2017-05-25] MEDS: valACYclovir 500 MG TAB PO SCH (09:11)
[2017-05-25] MEDS: Vancomycin HCl 1.25 GM in Sodium Chloride 0.9% 250 ML 250 ML IVPB SCH ×2 (09:12→22:29)
[2017-05-25] MEDS ORDERED: Guaifenesin DM 100-10/5 ML UDCUP PO PRN (09:17)
--- NOTE | 2017-05-25 11:18 | PRG ---
DATE OF SERVICE: 05/25/2017 SUBJECTIVE: He is feeling better, he is up in a chair, and he is also walking in the halls. OBJECTIVE: VITAL SIGNS: On exam, temperature 98.2, pulse 80, respirations 18, O2 saturation 97%, blood pressure 130/80. HEENT: Unremarkable. NECK: No JVD. CHEST: Clear. CARDIAC: S1 and S2, regular. ABDOMEN: Soft. EXTREMITIES: No edema. LABORATORY DATA: White blood cell count up to 3.3, hemoglobin 6.8, hematocrit 20.2, platelet count 2 2. ASSESSMENT: 1. Bilateral pneumonia. 2. Immunocompromised patient. 3. Multiple myeloma. PLAN: He appears to be responding very well to his current antibiotic regimen. I would continue radha t for a duration that is appropriate per Infectious Disease. There are no plans to do a bronchoscopy at this time. He will need followup imaging in 2-3 weeks. I will sign off the case. Please recall if further assistance is needed.
[2017-05-25] MEDS: Azithromycin 500 MG in Sodium Chloride 0.9% 250 ML 250 ML IVPB SCH (16:39)
[2017-05-25] MEDS: Acetaminophen 325 MG TAB PO PRN (19:01)
[2017-05-25] MEDS: Guaifenesin DM 100-10/5 ML UDCUP PO PRN (20:41)
[2017-05-25 20:52] LABS: Vancomycin, Trough 20.8 ug/mL
[2017-05-26] MEDS: Vancomycin HCl 1 GM in Premix Bag 1 BAG IVPB SCH ×2 (00:23→11:56)
[2017-05-26] MEDS: HYDROcodone/Acetaminophen 5/325 mg Tablet PO PRN (05:37)
[2017-05-26] MEDS: Levothyroxine Sodium 25 MCG TAB PO SCH (05:37)
[2017-05-26] MEDS: Meropenem 1 GM in Sterile Water 20 ML SLOW IVP SCH ×2 (05:37→13:58)
[2017-05-26] MEDS: Guaifenesin DM 100-10/5 ML UDCUP PO PRN (05:37)
[2017-05-26] MEDS: Sodium Chloride 0.9% 1,000 ML IV SCH (05:49)
[2017-05-26 06:13] LABS: Anion Gap 8 mmol/L (10-20); BUN (Urea Nitrogen) 23 mg/dL (8.4-25.7); Calc. Creatinine Clearance 105 mL/min (70-130); Calcium 7.6 mg/dL (7.8-10.44); Carbon Dioxide 23 mmol/L (23-31); Chloride 110 mmol/L (98-107); Estimated GFR-MDRD 84; Glucose 97 mg/dL (80-115); Hemoglobin 7.3 g/dL (14.0-18.0); Mean Corpuscular HGB CONC 32.4 g/dL (32.0-36.0); Mean Corpuscular Hemoglobin 30.2 pg (27.0-31.0); Mean Corpuscular Volume 93.4 fl (80.0-94.0); Mean Platelet Volume 10.1 fL (7.4-10.4); Platelet Count 17 thou/uL (130-400); Potassium 3.5 mmol/L (3.5-5.1); RBC Distribution Width 16.8 % (11.5-14.5); Red Blood Cell (RBC) Count 2.41 mill/uL (4.70-6.10); Sodium 137 mmol/L (136-145)
[2017-05-26 06:47] LABS: Band 23 % (5-11); Hypochromia SLIGHT = 6-15 cells (100X) (0-5/hpf); Lymphocytes 9 % (21-51); MDiff Complete? YES; Metamyelocyte 3 % (0-0); Monocytes 6 % (0-10); Myelocyte 1 % (0-0); Neutrophil 55 % (42-75); Nucleated RBC 1 % (0); PLT Morphology Comment Appears Decreased; Reactive Lymphocytes 3 % (0-10); Toxic Granulation SLIGHT
[2017-05-26] MEDS ORDERED: Dexamethasone 4 MG TAB PO ONE (08:00)
[2017-05-26] MEDS: valACYclovir 500 MG TAB PO SCH (08:22)
[2017-05-26] MEDS: Docusate 100 MG CAP PO SCH (08:24)
[2017-05-26] MEDS: Sodium Chloride 0.65% Nasal 44 ML BOT EA NARE SCH ×2 (08:24→15:22)
[2017-05-26 11:35] VITALS: BMI 27.9
[2017-05-26 13:17] LABS: CMV DNA-PCR Test Negative (Negative)
--- NOTE | 2017-05-26 13:52 | PDOC.PN ---
- Subjective Encounter Start Date: 05/26/17 Encounter Start Time: 13:50 Mr. Childers was seen in follow-up. He says he is feeling much better. He denies cough or shortness of breath. - Objective Resuscitation Status: Resuscitation Status FULL:Full Resuscitation MAR Reviewed: Yes Vital Signs & Weight: Vital Signs (12 hours) Temp Pulse Resp BP Pulse Ox 05/26/17 08:00 98.8 F 78 20 92 L 05/26/17 07:14 98.8 F 78 20 145/73 H 92 L Weight Admit Weight 198 lb Weight 200 lb 7 oz I&O: 05/25/17 05/26/17 05/27/17 06:59 06:59 06:59 Intake Total 1640 2870 Balance 1640 2870 Result Diagrams: 05/26/17 05:18 05/26/17 05:18 Phys Exam - Physical Examination HEENT: PERRLA + rhonchi and rales in the right base Cardiovascular: RRR, no significant murmur Gastrointestinal: soft, non-tender, positive bowel sounds Musculoskeletal: no edema Dx/Plan (1) Neutropenic fever Code(s): D70.9 - NEUTROPENIA, UNSPECIFIED; R50.81 - FEVER PRESENTING WITH CONDITIONS CLASSIFIED ELSEWHERE Status: Acute (2) Pneumonia, primary atypical Code(s): J18.9 - PNEUMONIA, UNSPECIFIED ORGANISM Status: Acute (3) Multiple myeloma Code(s): C90.00 - MULTIPLE MYELOMA NOT HAVING ACHIEVED REMISSION Status: Acute (4) Hypertension Code(s): I10 - ESSENTIAL (PRIMARY) HYPERTENSION Status: Acute (5) Hypothyroidism Code(s): E03.9 - HYPOTHYROIDISM, UNSPECIFIED Status: Acute (6) Pancytopenia due to antineoplastic chemotherapy Code(s): D61.810 - ANTINEOPLASTIC CHEMOTHERAPY INDUCED PANCYTOPENIA; T45.1X5A - ADVERSE EFFECT OF ANTINEOPLASTIC AND IMMUNOSUP DRUGS, INIT Status: Acute - Plan * Pneumonia- improving * Neutropenia- has resolved * Thrombocytopenia- discussed with Oncology, will transfuse a unit of platelets , and he can then be discharged home..
--- NOTE | 2017-05-26 14:19 | DIS ---
DATE OF ADMISSION: 05/21/2017 DATE OF DISCHARGE: 05/26/2017 PRIMARY CARE PHYSICIAN: Drake Mckeon M.D. DISCHARGE DISPOSITION: Home. PRIMARY DISCHARGE DIAGNOSES: 1. Neutropenic fever. 2. Pneumonia with sepsis. 3. Pancytopenia, likely secondary to chemotherapy. 4. History of recurrent multiple myeloma on chemotherapy. 5. Hypertension. 6. Hypothyroidism. 7. Hyperlipidemia. DISCHARGE MEDICATIONS: Include azithromycin 250 mg p.o. daily for 4 more days as well as Levaquin 50 0 mg daily for 7 days, levothyroxine 25 mcg p.o. daily, Valtrex 500 mg daily, hydrochlorothiazide on Wednesday, Wednesday, and Wednesday, and Norvasc 10 mg daily. These can be restarted once instructed by ia s primary care physician, as his blood pressure has been actually within normal range while off of shazia medications. PROCEDURES DONE DURING ADMISSION: The patient had a CT angiogram of the chest in which there was an extensive opacity through the upper lobe lingula, right middle lobe and lower lobe and it was consist ent with an atypical infectious process, possibly with a component of hemorrhage. There is extensive lytic lucency throughout the axial skeleton consistent with multiple myeloma. The patient also had an echocardiogram in which the ejection fraction was estimated at 60%-65%. There was normal right ve ntricular size and function. Left atrium was normal. CODE STATUS: FULL CODE. ALLERGIES: PENICILLINS and CEPHALOSPORINS. HOSPITAL COURSE: Mr. Childers is a pleasant 66-year-old gentleman who presented to the emergency room [facility] complaints of generalized weakness as well as cough and fever. He was evaluated and was found to be neutropenic. His initial neutrophil count was 400,000. He was admitted for neutropenic fever due to pneumonia. He was seen by Pulmonology as well as Infectious Disease. He was originally placed o n broad spectrum antibiotics as well as antibiotics to cover atypical organisms. He was also given N eupogen and over the course of the next few days, white blood cell count improved. His absolute neut rophil count improved to above 1000. He improved clinically as well as his symptoms and was able to be transitioned to oral antibiotics. He was given a transfusion of platelets prior to discharge and will anticipate that he will be discharged home this evening with close outpatient followup with his primary care physician. Since his blood pressures had been on the lower side, we will hold off on am lodipine and hydrochlorothiazide. I suspect that as he improves clinically, his blood pressure will start to trend back up and these will need to be restarted at a later date and this can be done at th e discretion of his primary care physician.
[2017-05-26 15:26] VITALS: BP 159/76; TEMP 98.2
== END 2017-05-26 16:24 | disposition home or self-care (01) | DRG 871 ==
LOC: ERS 15:17 → ONC 17:36
PROVIDERS: ADMIT Internal Medicine; ATTEND Internal Medicine
PROC: 30233R1 Transfusion of Nonautologous Platelets into Peripheral Vein, Percutaneous Approach (ICD-10-PCS; principal; 2017-05-21)
PROC: 30233N1 Transfusion of Nonautologous Red Blood Cells into Peripheral Vein, Percutaneous Approach (ICD-10-PCS; 2017-05-22)
DX: A41.9 Sepsis, unspecified organism (principal); D61.810 Antineoplastic chemotherapy induced pancytopenia; C90.00 Multiple myeloma not having achieved remission; J15.9 Unspecified bacterial pneumonia; D69.6 Thrombocytopenia, unspecified; Z94.84 Stem cells transplant status; E87.2 Acidosis; E66.01 Morbid (severe) obesity due to excess calories; E87.1 Hypo-osmolality and hyponatremia; D89.9 Disorder involving the immune mechanism, unspecified; E83.42 Hypomagnesemia; N18.3 Chronic kidney disease, stage 3 (moderate); E03.9 Hypothyroidism, unspecified; I12.9 Hypertensive chronic kidney disease with stage 1 through stage 4 chronic kidney disease, or unspecified chronic kidney disease; E78.5 Hyperlipidemia, unspecified; Z68.28 Body mass index [BMI] 28.0-28.9, adult; R50.81 Fever presenting with conditions classified elsewhere; Z87.19 Personal history of other diseases of the digestive system; Z92.21 Personal history of antineoplastic chemotherapy; Z88.1 Allergy status to other antibiotic agents; Z88.0 Allergy status to penicillin; Z82.49 Family history of ischemic heart disease and other diseases of the circulatory system; T45.1X5A Adverse effect of antineoplastic and immunosuppressive drugs, initial encounter
CPT/HCPCS: 36415; 36430; 71275; 80048; 80053; 80202; 82274; 83605; 83735; 83880; 84100; 84484; 85007; 85025; 85027; 85046; 86140; 86850; 86900; 86901; 87324; 87385; 87449; 87497; 87633; 87899; 93005; 93010; 93306; 94760; 96365; A4216; J0456; J0692; J1447; J2185; J3370; J3475; J7050; J8540; P9016; P9035

== ENCOUNTER → 2017-06-02 | Day surgery (SDC) | payer BC ==
[~2017-06-02] MED LIST changes: +Acetaminophen 500 MG TAB PO SCH; -ISOVUE-370 76%-LOCM 1 ML ONE; +Sodium Chloride 0.9% 30 ML ONE; +diphenhydrAMINE 25 MG CAP PO SCH
[2017-06-02 16:18] VITALS: TEMP 98.1
[2017-06-02 17:02] VITALS: BP 147/70
[2017-06-02 19:08] LABS: Hemoglobin 7.4 g/dL (14.0-18.0); Mean Corpuscular HGB CONC 33.3 g/dL (32.0-36.0); Mean Corpuscular Hemoglobin 30.4 pg (27.0-31.0); Mean Corpuscular Volume 91.3 fl (80.0-94.0); Mean Platelet Volume 7.7 fL (7.4-10.4); Platelet Count 34 thou/uL (130-400); RBC Distribution Width 16.4 % (11.5-14.5); Red Blood Cell (RBC) Count 2.43 mill/uL (4.70-6.10); White Blood Cell (WBC) Count 4.2 thou/uL (4.8-10.8)
[2017-06-02 19:30] LABS: Anisocytosis SLIGHT = 6-15 cells (100X) (0-5/hpf); Band 27 % (5-11); Lymphocytes 13 % (21-51); MDiff Complete? YES; Metamyelocyte 5 % (0-0); Myelocyte 3 % (0-0); Neutrophil 48 % (42-75); Nucleated RBC 2 % (0); Ovalocytes SLIGHT = 2-5 cells (100X) (0-1/hpf); PLT Morphology Comment Appears Decreased; Polychromasia SLIGHT = 2-3 cells (100X) (0-2/hpf); Promyelocytes 1 % (0-0); Reactive Lymphocytes 3 % (0-10); Tear Drops SLIGHT = 2-5 cells (100X) (0-1/hpf); Toxic Granulation MODERATE
== END ==
LOC: ONC/OP 12:06
PROVIDERS: ATTEND Internal Medicine Hematology & Oncology
PROC: 30233N1 Transfusion of Nonautologous Red Blood Cells into Peripheral Vein, Percutaneous Approach (ICD-10-PCS; principal; 2017-06-02)
PROC: 30233R1 Transfusion of Nonautologous Platelets into Peripheral Vein, Percutaneous Approach (ICD-10-PCS; principal; 2017-06-02)
DX: D64.9 Anemia, unspecified (principal); D69.6 Thrombocytopenia, unspecified; I10 Essential (primary) hypertension; E03.9 Hypothyroidism, unspecified; E78.5 Hyperlipidemia, unspecified; C90.00 Multiple myeloma not having achieved remission; Z88.1 Allergy status to other antibiotic agents; Z88.0 Allergy status to penicillin; Z94.84 Stem cells transplant status; Z98.890 Other specified postprocedural states
CPT/HCPCS: 36415; 36430; 80053; 82248; 83615; 84100; 84550; 85025; 86850; 86900; 86901; A4216; P9016; P9035

== ENCOUNTER 2017-06-07 12:31 | Day surgery (SDC) | payer BC ==
[2017-06-07] MEDS ORDERED: diphenhydrAMINE 25 MG CAP PO SCH (13:00)
[2017-06-07] MEDS ORDERED: Acetaminophen 500 MG TAB PO SCH (13:00)
[2017-06-07] MEDS ORDERED: Sodium Chloride 0.9% 30 ML ONE (13:22)
[2017-06-07 19:37] VITALS: BP 155/74; TEMP 98.3
[2017-06-07 19:56] LABS: Hemoglobin 8.4 g/dL (14.0-18.0); Mean Corpuscular HGB CONC 33.5 g/dL (32.0-36.0); Mean Corpuscular Hemoglobin 30.2 pg (27.0-31.0); Mean Corpuscular Volume 90.1 fl (80.0-94.0); Mean Platelet Volume 7.6 fL (7.4-10.4); Platelet Count 25 thou/uL (130-400); Red Blood Cell (RBC) Count 2.79 mill/uL (4.70-6.10); White Blood Cell (WBC) Count 2.1 thou/uL (4.8-10.8)
[2017-06-07 20:20] LABS: Band 15 % (5-11); Eosinophils 1 % (0-10); Lymphocytes 35 % (21-51); MDiff Complete? YES; Metamyelocyte 3 % (0-0); Monocytes 9 % (0-10); Neutrophil 27 % (42-75); Nucleated RBC 3 % (0); PLT Morphology Comment Appears Decreased; Polychromasia SLIGHT = 2-3 cells (100X) (0-2/hpf); Promyelocytes 2 % (0-0); Reactive Lymphocytes 6 % (0-10)
== END 2017-06-07 19:45 | disposition home or self-care (01) ==
LOC: ONC/OP 12:31
PROVIDERS: ATTEND Internal Medicine Hematology & Oncology
PROC: 30233N1 Transfusion of Nonautologous Red Blood Cells into Peripheral Vein, Percutaneous Approach (ICD-10-PCS; principal; 2017-06-07)
DX: I12.9 Hypertensive chronic kidney disease with stage 1 through stage 4 chronic kidney disease, or unspecified chronic kidney disease (principal); N18.3 Chronic kidney disease, stage 3 (moderate); D63.1 Anemia in chronic kidney disease; D69.59 Other secondary thrombocytopenia; C90.00 Multiple myeloma not having achieved remission; D61.818 Other pancytopenia; E03.9 Hypothyroidism, unspecified; E78.5 Hyperlipidemia, unspecified; Z79.2 Long term (current) use of antibiotics; Z79.899 Other long term (current) drug therapy; Z88.0 Allergy status to penicillin; Z94.84 Stem cells transplant status; Z98.890 Other specified postprocedural states
CPT/HCPCS: 36415; 36430; 80053; 82248; 83615; 84100; 84550; 85025; 86850; 86900; 86901; A4216; P9016; P9035

== ENCOUNTER 2017-06-11 09:13 | Day surgery (SDC) | payer BC ==
[2017-06-11] MEDS ORDERED: diphenhydrAMINE 25 MG CAP PO PRN (09:26)
[2017-06-11] MEDS ORDERED: Sodium Chloride 0.9% 20 ML ONE (09:26)
[2017-06-11] MEDS ORDERED: Acetaminophen 500 MG TAB PO SCH (09:30)
[2017-06-11 13:29] VITALS: BP 140/67; TEMP 98
== END 2017-06-11 12:30 | disposition home or self-care (01) ==
LOC: ONC/OP 09:13
PROVIDERS: ATTEND Internal Medicine Hematology & Oncology
PROC: 30233R1 Transfusion of Nonautologous Platelets into Peripheral Vein, Percutaneous Approach (ICD-10-PCS; principal; 2017-06-11)
PROC: 30233N1 Transfusion of Nonautologous Red Blood Cells into Peripheral Vein, Percutaneous Approach (ICD-10-PCS; principal; 2017-06-11)
DX: D64.9 Anemia, unspecified (principal); D69.6 Thrombocytopenia, unspecified; C90.00 Multiple myeloma not having achieved remission; I10 Essential (primary) hypertension; E78.5 Hyperlipidemia, unspecified; E03.9 Hypothyroidism, unspecified; Z88.0 Allergy status to penicillin; Z88.1 Allergy status to other antibiotic agents
CPT/HCPCS: 36430; 86850; 86870; 86900; 86901; 86922; P9035

== ENCOUNTER 2017-06-12 10:38 | Day surgery (SDC) | payer BC ==
[~2017-06-12 10:38] MED LIST changes: -Sodium Chloride 0.9% 30 ML ONE; -diphenhydrAMINE 25 MG CAP PO SCH; +diphenhydrAMINE 50 MG/ML VIAL IVP SCH
[2017-06-12 16:23] VITALS: BP 145/75; TEMP 98
[2017-06-12 16:41] LABS: Hemoglobin 7.9 g/dL (14.0-18.0); Mean Corpuscular HGB CONC 33.3 g/dL (32.0-36.0); Mean Corpuscular Hemoglobin 29.7 pg (27.0-31.0); Mean Platelet Volume 8.7 fL (7.4-10.4); Platelet Count 24 thou/uL (130-400); RBC Distribution Width 14.4 % (11.5-14.5); Red Blood Cell (RBC) Count 2.67 mill/uL (4.70-6.10); White Blood Cell (WBC) Count 0.3 thou/uL (4.8-10.8)
[2017-06-12 17:05] LABS: Anisocytosis SLIGHT = 6-15 cells (100X) (0-5/hpf); MDiff Complete? YES; PLT Morphology Comment Appears Decreased
== END 2017-06-12 16:35 | disposition home or self-care (01) ==
LOC: ONC/OP 10:38
PROVIDERS: ATTEND Internal Medicine Hematology & Oncology
PROC: 30233N1 Transfusion of Nonautologous Red Blood Cells into Peripheral Vein, Percutaneous Approach (ICD-10-PCS; principal; 2017-06-12)
DX: D64.9 Anemia, unspecified (principal); C90.00 Multiple myeloma not having achieved remission; I10 Essential (primary) hypertension; E78.5 Hyperlipidemia, unspecified; E03.9 Hypothyroidism, unspecified; Z88.1 Allergy status to other antibiotic agents; Z88.0 Allergy status to penicillin; Z94.84 Stem cells transplant status
CPT/HCPCS: 36415; 36430; 85025; 86850; 86870; 86880; 86900; 86901; 86905; 86922; 86970; J1200; P9016; P9035

== ENCOUNTER 2017-06-16 08:47 | Day surgery (SDC) | payer BC ==
[2017-06-16] MEDS ORDERED: Acetaminophen 500 MG TAB PO SCH (09:15)
[2017-06-16] MEDS ORDERED: diphenhydrAMINE 25 MG CAP PO SCH (09:15)
[2017-06-16] MEDS ORDERED: Sodium Chloride 0.9% 30 ML ONE (09:47)
[2017-06-16 16:49] VITALS: BP 165/83; TEMP 97.4
[2017-06-16 17:56] LABS: Hemoglobin 9.3 g/dL (14.0-18.0); Mean Corpuscular HGB CONC 33.2 g/dL (32.0-36.0); Mean Corpuscular Hemoglobin 29.8 pg (27.0-31.0); Mean Corpuscular Volume 89.7 fl (80.0-94.0); Mean Platelet Volume 8.8 fL (7.4-10.4); Platelet Count 41 thou/uL (130-400); RBC Distribution Width 14.2 % (11.5-14.5); Red Blood Cell (RBC) Count 3.13 mill/uL (4.70-6.10); White Blood Cell (WBC) Count 0.5 thou/uL (4.8-10.8)
== END 2017-06-16 16:58 | disposition home or self-care (01) ==
LOC: ONC/OP 08:47
PROVIDERS: ATTEND Internal Medicine Hematology & Oncology
PROC: 30233N1 Transfusion of Nonautologous Red Blood Cells into Peripheral Vein, Percutaneous Approach (ICD-10-PCS; principal; 2017-06-16)
PROC: 30233R1 Transfusion of Nonautologous Platelets into Peripheral Vein, Percutaneous Approach (ICD-10-PCS; principal; 2017-06-16)
DX: I12.9 Hypertensive chronic kidney disease with stage 1 through stage 4 chronic kidney disease, or unspecified chronic kidney disease (principal); N18.3 Chronic kidney disease, stage 3 (moderate); D63.1 Anemia in chronic kidney disease; E78.5 Hyperlipidemia, unspecified; E03.9 Hypothyroidism, unspecified; C90.00 Multiple myeloma not having achieved remission; Z88.0 Allergy status to penicillin; Z88.1 Allergy status to other antibiotic agents; Z94.84 Stem cells transplant status; Z98.890 Other specified postprocedural states
CPT/HCPCS: 36415; 36430; 85025; 86850; 86870; 86880; 86900; 86901; 86905; 86922; 86970; 86972; A4216; P9016; P9035

== ENCOUNTER 2017-06-23 08:33 | Day surgery (SDC) | payer BC ==
[2017-06-23] MEDS ORDERED: diphenhydrAMINE 25 MG CAP PO SCH (09:00)
[2017-06-23] MEDS ORDERED: Acetaminophen 500 MG TAB PO SCH (09:00)
[2017-06-23 17:37] VITALS: BP 158/85; TEMP 98
[2017-06-23 17:54] LABS: Hemoglobin 9.6 g/dL (14.0-18.0); Mean Corpuscular HGB CONC 33.5 g/dL (32.0-36.0); Mean Corpuscular Hemoglobin 29.8 pg (27.0-31.0); Mean Corpuscular Volume 89.1 fl (80.0-94.0); Mean Platelet Volume 10.2 fL (7.4-10.4); Platelet Count 23 thou/uL (130-400); RBC Distribution Width 13.5 % (11.5-14.5); Red Blood Cell (RBC) Count 3.22 mill/uL (4.70-6.10); White Blood Cell (WBC) Count 0.4 thou/uL (4.8-10.8)
[2017-06-23 18:23] LABS: PLT Morphology Comment Appears Decreased
== END 2017-06-23 17:39 | disposition home or self-care (01) ==
LOC: ONC/OP 08:33
PROVIDERS: ATTEND Internal Medicine Hematology & Oncology
PROC: 30233R1 Transfusion of Nonautologous Platelets into Peripheral Vein, Percutaneous Approach (ICD-10-PCS; principal; 2017-06-23)
PROC: 30233N1 Transfusion of Nonautologous Red Blood Cells into Peripheral Vein, Percutaneous Approach (ICD-10-PCS; principal; 2017-06-23)
DX: D64.9 Anemia, unspecified (principal); D69.6 Thrombocytopenia, unspecified; Z88.0 Allergy status to penicillin; Z88.1 Allergy status to other antibiotic agents
CPT/HCPCS: 36430; 85025; 86850; 86870; 86880; 86900; 86901; 86922; 86970; P9016; P9035

== ENCOUNTER 2017-06-30 08:53 | Day surgery (SDC) | payer BC ==
[2017-06-30] MEDS ORDERED: Acetaminophen 500 MG TAB PO SCH (09:15)
[2017-06-30] MEDS ORDERED: diphenhydrAMINE 25 MG CAP PO SCH (09:15)
[2017-06-30] MEDS ORDERED: Sodium Chloride 0.9% 20 ML ONE (09:17)
[2017-06-30 13:13] VITALS: TEMP 97.6
[2017-06-30 15:16] VITALS: BP 142/70
[2017-06-30 15:31] LABS: Hemoglobin 9.9 g/dL (14.0-18.0); Mean Corpuscular HGB CONC 34.6 g/dL (32.0-36.0); Mean Corpuscular Hemoglobin 30.6 pg (27.0-31.0); Mean Corpuscular Volume 88.3 fl (80.0-94.0); Mean Platelet Volume 8.7 fL (7.4-10.4); Platelet Count 26 thou/uL (130-400); RBC Distribution Width 13.3 % (11.5-14.5); Red Blood Cell (RBC) Count 3.23 mill/uL (4.70-6.10); White Blood Cell (WBC) Count 0.3 thou/uL (4.8-10.8)
== END 2017-06-30 15:16 | disposition home or self-care (01) ==
LOC: ONC/OP 08:53
PROVIDERS: ATTEND Internal Medicine Hematology & Oncology
PROC: 30233R1 Transfusion of Nonautologous Platelets into Peripheral Vein, Percutaneous Approach (ICD-10-PCS; principal; 2017-06-30)
PROC: 30233N1 Transfusion of Nonautologous Red Blood Cells into Peripheral Vein, Percutaneous Approach (ICD-10-PCS; principal; 2017-06-30)
DX: D64.9 Anemia, unspecified (principal); D69.59 Other secondary thrombocytopenia; C90.00 Multiple myeloma not having achieved remission; D63.0 Anemia in neoplastic disease; Z88.0 Allergy status to penicillin; Z88.1 Allergy status to other antibiotic agents
CPT/HCPCS: 36415; 36430; 85025; 86850; 86870; 86880; 86900; 86901; 86922; 86970; A4216; P9016; P9035

== ENCOUNTER → 2017-07-07 | Day surgery (SDC) | payer BC ==
[~2017-07-07] MED LIST changes: +Sodium Chloride 0.9% 20 ML ONE; +diphenhydrAMINE 25 MG CAP PO SCH; -diphenhydrAMINE 50 MG/ML VIAL IVP SCH
[2017-07-07 17:42] VITALS: BP 153/85; TEMP 97.8
[2017-07-07 18:40] LABS: Hemoglobin 9.7 g/dL (14.0-18.0); Mean Corpuscular HGB CONC 33.8 g/dL (32.0-36.0); Mean Corpuscular Hemoglobin 29.4 pg (27.0-31.0); Mean Corpuscular Volume 87.1 fl (80.0-94.0); Mean Platelet Volume 10.5 fL (7.4-10.4); Platelet Count 26 thou/uL (130-400); RBC Distribution Width 13.6 % (11.5-14.5); Red Blood Cell (RBC) Count 3.29 mill/uL (4.70-6.10); White Blood Cell (WBC) Count 0.3 thou/uL (4.8-10.8)
[2017-07-07 19:16] LABS: MDiff Complete? YES; PLT Morphology Comment Appears Decreased; Tear Drops SLIGHT = 2-5 cells (100X) (0-1/hpf)
== END ==
LOC: ONC/OP 09:24
PROVIDERS: ATTEND Internal Medicine Hematology & Oncology
DX: D64.9 Anemia, unspecified (principal); D69.6 Thrombocytopenia, unspecified; I12.9 Hypertensive chronic kidney disease with stage 1 through stage 4 chronic kidney disease, or unspecified chronic kidney disease; N18.4 Chronic kidney disease, stage 4 (severe); D63.1 Anemia in chronic kidney disease; I25.10 Atherosclerotic heart disease of native coronary artery without angina pectoris; N40.0 Benign prostatic hyperplasia without lower urinary tract symptoms; E03.9 Hypothyroidism, unspecified; E78.5 Hyperlipidemia, unspecified; I48.2 Chronic atrial fibrillation; Z88.0 Allergy status to penicillin; Z88.1 Allergy status to other antibiotic agents; Z79.01 Long term (current) use of anticoagulants; Z79.82 Long term (current) use of aspirin; Z79.899 Other long term (current) drug therapy
CPT/HCPCS: 36415; 36430; 85025; 86850; 86870; 86880; 86900; 86901; 86922; 86970; A4216; P9016; P9035

== ENCOUNTER 2017-07-14 09:56 | Day surgery (SDC) | payer BC ==
[2017-07-14] MEDS ORDERED: Acetaminophen 500 MG TAB PO SCH (10:45)
[2017-07-14] MEDS ORDERED: diphenhydrAMINE 25 MG CAP PO SCH (10:45)
[2017-07-14 17:00] VITALS: BP 164/89; TEMP 98.3
[2017-07-14 17:13] LABS: Hemoglobin 11.5 g/dL (14.0-18.0); Mean Corpuscular HGB CONC 33.1 g/dL (32.0-36.0); Mean Corpuscular Hemoglobin 29.1 pg (27.0-31.0); Mean Corpuscular Volume 87.9 fl (80.0-94.0); Mean Platelet Volume 9.2 fL (7.4-10.4); Platelet Count 33 thou/uL (130-400); RBC Distribution Width 13.4 % (11.5-14.5); Red Blood Cell (RBC) Count 3.96 mill/uL (4.70-6.10); White Blood Cell (WBC) Count 0.3 thou/uL (4.8-10.8)
== END 2017-07-14 17:03 | disposition home or self-care (01) ==
LOC: ONC/OP 09:56
PROVIDERS: ATTEND Internal Medicine Hematology & Oncology
PROC: 30233N1 Transfusion of Nonautologous Red Blood Cells into Peripheral Vein, Percutaneous Approach (ICD-10-PCS; principal; 2017-07-14)
DX: C90.00 Multiple myeloma not having achieved remission (principal); D63.0 Anemia in neoplastic disease; D69.6 Thrombocytopenia, unspecified; D61.818 Other pancytopenia; I10 Essential (primary) hypertension; E03.9 Hypothyroidism, unspecified; E78.5 Hyperlipidemia, unspecified; Z79.2 Long term (current) use of antibiotics; Z79.899 Other long term (current) drug therapy; Z88.0 Allergy status to penicillin; Z88.1 Allergy status to other antibiotic agents; Z94.84 Stem cells transplant status
CPT/HCPCS: 36430; 85025; 86850; 86870; 86880; 86900; 86901; 86922; 86970; P9016; P9035

== ENCOUNTER 2017-07-19 09:19 | Inpatient (IN) | payer BC ==
[2017-07-19 10:39] LABS: Hemoglobin 9.2 g/dL (14.0-18.0); Mean Corpuscular HGB CONC 32.7 g/dL (32.0-36.0); Mean Corpuscular Hemoglobin 29.2 pg (27.0-31.0); Mean Corpuscular Volume 89.1 fl (80.0-94.0); Mean Platelet Volume 13.9 fL (7.4-10.4); Platelet Count 5 thou/uL (130-400); RBC Distribution Width 13.7 % (11.5-14.5); Red Blood Cell (RBC) Count 3.17 mill/uL (4.70-6.10); White Blood Cell (WBC) Count 0.4 thou/uL (4.8-10.8)
[2017-07-19 10:52] LABS: ALT (SGPT) 50 U/L (8-55); AST (SGOT) 32 U/L (5-34); Albumin 1.8 g/dL (3.4-4.8); Alkaline Phosphatase 114 U/L (40-150); Anion Gap 10 mmol/L (10-20); BUN (Urea Nitrogen) 24 mg/dL (8.4-25.7); Bilirubin, Total 1.5 mg/dL (0.2-1.2); Calc. Creatinine Clearance 0 mL/min (70-130); Calcium 7.8 mg/dL (7.8-10.44); Carbon Dioxide 20 mmol/L (23-31); Chloride 106 mmol/L (98-107); Estimated GFR-MDRD 65; Globulin 7.9 g/dL (2.4-3.5); Glucose 102 mg/dL (80-115); Protein, Total 9.7 g/dL (5.8-8.1); Sodium 133 mmol/L (136-145)
[2017-07-19 10:54] LABS: PLT Morphology Comment Appears Decreased
--- NOTE | 2017-07-19 10:58 | RAD ---
PORTABLE AP CHEST X-RAY: 07/19/2017 HISTORY: Fever. COMPARISON: 05/20/2016 FINDINGS: The cardiac silhouette is magnified by projection. The pulmonary vasculature is within normal limits . There are increased densities seen, overlying the left upper and left mid lung zones, which are mo st likely related to lesions within the overlying posterior ribs. Expansile sclerotic lesions are se en within the ribs bilaterally, with evidence of remote rib fractures and a few lucent lytic lesions involving the ribs as well. Findings are likely related to the patient's history of multiple myeloma . The lungs are otherwise clear. There has been no other interval change from prior exam. No acute cardiopulmonary process. Mild cardiomegaly. Rib abnormalities, which may be related to the patient 's multiple myeloma or prior rib fractures. Vascular calcification seen in the thoracic aorta. IMPRESSION: Nodular and patchy densities seen within the left upper lung zone and left mid lung zone, which could be related to focal areas of pneumonitis. However, a follow-up evaluation is recommended to exclude the possibility of pulmonary nodules. POS: [facility]
[2017-07-19 11:03] LABS: Bilirubin Small (Negative); Blood, Urine Large (Negative); Glucose, Urine (Dipstick) Negative (Negative); Leukocyte Negative (Negative); Nitrite Negative (Negative); Protein, Urine (Dipstick) 100 mg/dL (Neg-Trace); Specific Gravity, Urine 1.025 (1.005-1.030)
[2017-07-19 11:09] LABS: Clarity Hazy (Clear)
[2017-07-19 11:30] LABS: Squamous Epithelial 0-3 HPF (0-3); WBC/HPF 0-3 HPF (0-3)
[2017-07-19 11:31] LABS: Bacteria/HPF None Seen HPF (None Seen); Crystals/HPF 1+ AMORPH URATES HPF (Negative); Hyaline Casts/LPF 0-3 HYALINE CAST LPF (0-3 Hyaline)
[2017-07-19 12:44] LABS: CKMB 0.8 ng/mL (0-6.6); Troponin I 0.012 ng/mL (< 0.028)
--- NOTE | 2017-07-19 13:19 | HP ---
DATE OF ADMISSION: 07/19/2017 PRIMARY CARE PHYSICIAN: Dr. Drake Mckeon REASON FOR ADMISSION: Fever, generalized weakness and neutropenia. HISTORY OF PRESENT ILLNESS: Mr. Childers is a very pleasant 66-year-old gentleman that has a history of multiple myeloma. He is currently undergoing chemotherapy. His last chemotherapy session was on Wed. He says that on Wednesday, the following day, he went in for transfusion. The following day o n , he began having a fever and temperature. The next day, he was started on Levaquin as he was having a little bit of a cough, but it was productive of some clear sputum. On Wednesday and , he says he felt okay, but then and in fact, went out with his and visited family and went sh opping. He even watched his grandchildren play baseball, then on Wednesday he felt extremely weak and t he cough started having some blood tinge to it. His says he did seem himself either and that he was extremely fatigued and weak. She also noted a little bit of a nosebleed. 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 The patient is found to be a pancytopenic and neutropenic with a white blood cell count of 0.4. The rafael trophils were not reported. His platelet count was also 5000 and he is being admitted for neutropeni c fever. REVIEW OF SYSTEMS: Constitutional: There have been fevers, chills, but no night sweats, no weight l oss. HEENT: He denies any headaches, no dizziness, no visual changes, no sore throat, no rhinorrhea , neck pain, no adenopathy. Pulmonary: No hemoptysis. He did have no david hemoptysis, but some bl ood-tinged sputum, no chest pain, but he has had shortness of breath. Cardiovascular: Again, no shelbie ns in the chest, but some shortness of breath, no PND, no orthopnea, no palpitations. Gastrointestin al: No abdominal pain. No nausea. He did have some loose stools, no blood in the stools. Genitour inary: No urinary frequency, hematuria, no hesitancy. Neurologic: No focal weakness, numbness, no seizures. Psychiatric: No symptoms of anxiety or depression. Skin and integument: No skin changes . No rash. PAST MEDICAL HISTORY: Taken from previous electronic records from Dr. Rutherford's noted in April and ncludes multiple myeloma, pancytopenia with intermittent transfusions, hypertension, hypothyroidism, history of a stem cell transplant, diverticulosis, hyperlipidemia, and impaired glucose. PAST SURGICAL HISTORY: Again, he has had a stem cell transplant and hernia repair. ALLERGIES: PENICILLIN. SOCIAL HISTORY: He lives at home with family. He is a nonsmoker, nondrinker. CODE STATUS: FULL CODE. FAMILY HISTORY: Significant for mother with congestive heart failure. CURRENT MEDICATIONS: These will need to be reconciled. On a previous admission, he had been on levo thyroxine 25 mcg daily, Norvasc 10 mg daily, hydrochlorothiazide on Wednesday, Wednesday, and Wednesday as well as Valtrex 500 daily. PHYSICAL EXAMINATION: GENERAL: He is alert and oriented. He appears to be in no acute distress except he does appear very frail and weak. VITAL SIGNS: Blood pressure was 129/72, heart rate 90, respiratory rate of 20, temperature is 98.9. HEENT: His pupils are equal, round, and reactive. Extraocular muscles are intact. Sclerae are anic teric. Throat: He does have some petechial lesions on the roof of his mouth. CARDIOVASCULAR: He has a normal S1, S2. He does have a slight grade 2/6 systolic murmur. ABDOMEN: Obese, it is soft, it is nontender, nondistended. Positive for bowel sounds. No rebound, no guarding. EXTREMITIES: He has got 1-2+ pitting edema as well as some petechia on the lower extremities. NEUROLOGIC: The exam is nonfocal. LABORATORY DATA: His lab results, white blood cell count 0.4, hemoglobin 9.2, hematocrit is 28.2, an d platelet count is 5. Sodium 133, potassium 3.0, chloride is 106, CO2 is 20, BUN of 24, creatinine 1.13, glucose was 102, total bilirubin is 1.5. Urinalysis, there is large blood, but no nitrites, 0- 3 white blood cells. He had a chest x-ray, there were some nodular patchy densities in the left uppe r lung and left mid lung zone. ASSESSMENT AND PLAN: 1. This is a pleasant 66-year-old gentleman who presents with neutropenic fever. He has history of multiple myelomas and is currently undergoing chemotherapy and he will be placed on neutropenic preca utions, which have been started in the ER, admitted to the Oncology germain. We will start him on the n eutropenic protocol. Unfortunately, since he is allergic to PENICILLIN and CEPHALOSPORINS, we will h ave to forego treating him with cefepime and we will cover gram negatives with Levaquin. We will als o place him on vancomycin. Given his drug allergies and the seriousness of this condition, we will a lso consult Infectious Disease specialist to help with regards to antibiotic choice. 2. Pancytopenia. This is likely as a result of both the myeloma as well as chemotherapy. His plate let count is dangerously low and therefore we will go ahead and transfuse him a unit of platelets. H opefully, single unit of single donor platelets and will also consult Oncology for further recommenda tions as well.
[2017-07-19] MEDS ORDERED: Milk Of Magnesia 30 ML UDCUP PO PRN (17:24)
[2017-07-19] MEDS ORDERED: hydrALAZINE 20 MG/ML VIAL SLOW IVP PRN (17:24)
[2017-07-19] MEDS ORDERED: Ondansetron HCl/PF 4 MG/2 ML Vial IVP PRN (17:24)
[2017-07-19] MEDS ORDERED: Ondansetron ODT 4 MG TAB PO PRN (17:24)
[2017-07-19] MEDS ORDERED: Lorazepam 1 MG TAB PO PRN (17:24)
[2017-07-19] MEDS ORDERED: Acetaminophen 325 MG TAB PO PRN (17:24)
[2017-07-19 17:34] VITALS: BMI 25.6
[2017-07-19 18:28] LABS: Troponin I Less than 0.010 ng/mL (< 0.028)
--- NOTE | 2017-07-19 19:40 | CON ---
DATE OF CONSULTATION: 07/19/2017 REASON FOR CONSULTATION: Multiple myeloma. HISTORY OF PRESENT ILLNESS: Mr. Childers is a pleasant 66-year-old male, who is currently undergoing treatment with Darzalex for multiple myeloma. He has pancytopenia, which has been slow to respond to treatment. He is currently transfusion dependent with his last transfusion on 07/13/2017. Over the weekend, he began to develop a cough. This morning, he had a low-grade fever, so he was sent to the emergency room for evaluation. In the emergency room, his white count was 400, hemoglobin was 9.2, platelet count was 5000. He was started on IV fluids, empiric antibiotics, and will be admitted for neutropenic fever. Chest x-ray showed no acute process. The patient denies any shortness of breath or chest pain. No GI complaints. Stools have been normal. No rash. He has blood-tinged sputum when he coughs, but no bleeding from his nose, rectum, or urine. PAST MEDICAL HISTORY: 1. Multiple myeloma. 2. Hypertension. 3. Hypothyroidism. PAST SURGICAL HISTORY: Stem cell transplant, hernia repair. ALLERGIES: PENICILLIN and CEPHALOSPORIN. HOME MEDICATIONS: 1. Hydrochlorothiazide 12.5 mg Wednesday, Wednesday, and Wednesday. 2. [place] p.r.n. 3. Synthroid 25 mcg daily. 4. Valtrex 500 mg daily. FAMILY HISTORY: Noncontributory. SOCIAL HISTORY: He is and has 3 children. No alcohol, tobacco, or illicit drug use. REVIEW OF SYSTEMS: Twelve-point review of systems is negative except per noted in HPI. PHYSICAL EXAMINATION: VITAL SIGNS: Heart rate is 96, respiratory rate 20, BP is 138/65, he is 93% on room air, temperature is 98. GENERAL: Ill-appearing male in no acute distress. HEENT: Normocephalic, atraumatic. Pupils are equal and reactive to light. NECK: Supple. CARDIOVASCULAR: Regular rate and rhythm. LUNGS: Have wheezes and crackles. ABDOMEN: Soft, nontender. Bowel sounds are positive. EXTREMITIES: No clubbing, cyanosis, or edema. SKIN: No rash. HEMATOLOGIC: No petechia or purpura. NEUROLOGIC: Nonfocal. PSYCHIATRIC: The patient is alert, oriented, and appropriate. PERTINENT LABORATORY AND X-RAYS: Current WBC is 400, hemoglobin 9.2, hematocrit 28.2, platelet count is 5000. Sodium is 133, potassium 3, chloride 106, CO2 is 20, BUN is 24, creatinine 1.13, calcium 7.8, total bilirubin is 0.5 , AST is 32, ALT is 50, alkaline phosphatase is 114. Creatinine kinase is 29. Serum total protein 9.7, albumin 1.8, globulin 7.9. Urine was negative for bacteria. ASSESSMENT: 1. Multiple myeloma, currently on Darzalex chemotherapy. 2. Chronic pancytopenia. 3. Neutropenic fever. DISCUSSION: The patient has been placed on vancomycin and Levaquin. Dr. Vazquez has been consulted with Infectious Disease. He is on neutropenic precautions. He has been transfused 1 unit of platelets. We will check a daily CBC and follow his hospital course closely. Thank you for the consult. KAROLYN
[2017-07-19] MEDS: NS 0.9% w/ 40 MEQ KCL 1,000 ML IV SCH (23:18)
[2017-07-19] MEDS: Vancomycin HCl 1 GM in Premix Bag 1 BAG IVPB SCH (23:22)
[2017-07-20 06:32] LABS: Mean Corpuscular HGB CONC 33.5 g/dL (32.0-36.0); Mean Corpuscular Hemoglobin 29.5 pg (27.0-31.0); Mean Corpuscular Volume 88.2 fl (80.0-94.0); Platelet Count 23 thou/uL (130-400); RBC Distribution Width 13.8 % (11.5-14.5); Red Blood Cell (RBC) Count 3.38 mill/uL (4.70-6.10); White Blood Cell (WBC) Count 0.7 thou/uL (4.8-10.8)
[2017-07-20 06:40] LABS: Anion Gap 12 mmol/L (10-20); BUN (Urea Nitrogen) 18 mg/dL (8.4-25.7); Calc. Creatinine Clearance 90 mL/min (70-130); Calcium 7.9 mg/dL (7.8-10.44); Carbon Dioxide 20 mmol/L (23-31); Chloride 105 mmol/L (98-107); Estimated GFR-MDRD 77; Glucose 98 mg/dL (80-115); Potassium 3.1 mmol/L (3.5-5.1); Sodium 134 mmol/L (136-145)
[2017-07-20 06:44] LABS: Band 8 % (5-11); Lymphocytes 48 % (21-51); MDiff Complete? YES; Metamyelocyte 8 % (0-0); Myelocyte 4 % (0-0); Neutrophil 32 % (42-75); PLT Morphology Comment Appears Decreased
[2017-07-20] MEDS: valACYclovir 500 MG TAB PO SCH ×2 (09:21)
[2017-07-20] MEDS: Levothyroxine Sodium 25 MCG TAB PO SCH (09:21)
[2017-07-20] MEDS: HYDROcodone/Acetaminophen 5/325 mg Tablet PO PRN (09:22)
[2017-07-20] MEDS: Vancomycin HCl 1 GM in Premix Bag 1 BAG IVPB SCH (12:01)
[2017-07-20] MEDS ORDERED: Meropenem 1 GM in Sodium Chloride 0.9% 100 ML IVPB SCH (14:00)
[2017-07-20] MEDS ORDERED: MEROPENEM 1 GM/50 ML 1 GM in Admixture Fee 1 EACH IVPB SCH (14:00)
--- NOTE | 2017-07-20 14:15 | PDOC.PN ---
- Subjective Encounter Start Date: 07/20/17 Encounter Start Time: 14:13 Subjective: feels weak ,SOB,wants to go home - Objective Resuscitation Status: Resuscitation Status FULL:Full Resuscitation MAR Reviewed: Yes Vital Signs & Weight: Vital Signs (12 hours) Temp Pulse Resp BP Pulse Ox 07/20/17 12:35 97.9 F 80 18 139/69 100 07/20/17 08:09 97.7 F 92 18 131/67 98 07/20/17 08:00 97.7 F 92 18 98 07/20/17 03:55 98.1 F 91 16 141/71 H 98 Weight Weight 183 lb 13.848 oz I&O: 07/19/17 07/20/17 07/21/17 06:59 06:59 06:59 Intake Total 2300 Output Total 600 Balance 1700 Result Diagrams: 07/20/17 05:33 07/20/17 05:33 Phys Exam - Physical Examination Constitutional: NAD malnourished HEENT: PERRLA, moist MMs, sclera anicteric, oral pharynx no lesions Neck: no nodes, no JVD, supple, full ROM Respiratory: no wheezing, no rales, no rhonchi, clear to auscultation bilateral Cardiovascular: RRR, no significant murmur, no rub Gastrointestinal: soft, non-tender, no distention, positive bowel sounds Musculoskeletal: no edema, pulses present Neurological: non-focal, normal sensation, moves all 4 limbs Dx/Plan (1) Neutropenic fever Code(s): D70.9 - NEUTROPENIA, UNSPECIFIED; R50.81 - FEVER PRESENTING WITH CONDITIONS CLASSIFIED ELSEWHERE Status: Acute (2) Pancytopenia due to antineoplastic chemotherapy Code(s): D61.810 - ANTINEOPLASTIC CHEMOTHERAPY INDUCED PANCYTOPENIA; T45.1X5A - ADVERSE EFFECT OF ANTINEOPLASTIC AND IMMUNOSUP DRUGS, INIT Status: Acute (3) Pneumonia, primary atypical Code(s): J18.9 - PNEUMONIA, UNSPECIFIED ORGANISM Status: Suspected (4) Hypokalemia Code(s): E87.6 - HYPOKALEMIA Status: Acute (5) Hypertension Code(s): I10 - ESSENTIAL (PRIMARY) HYPERTENSION Status: Acute (6) Hypothyroidism Code(s): E03.9 - HYPOTHYROIDISM, UNSPECIFIED Status: Acute (7) Multiple myeloma Code(s): C90.00 - MULTIPLE MYELOMA NOT HAVING ACHIEVED REMISSION Status: Acute Qualifiers: Multiple myeloma remission status: not in remission Qualified Code(s): C90.00 - Multiple myeloma not having achieved remission Comment: with bone mets (8) Protein-calorie malnutrition, moderate Code(s): E44.0 - MODERATE PROTEIN-CALORIE MALNUTRITION Status: Chronic - Plan continue antibiotics, PT/OT, respiratory therapy, incentive spirometry, out of bed/ambulate, DVT proph w/SCDs cont IV ABx empirically,IVF,follow cx results. ID recs -: monitor CBC w transfusion prn.no active bleeding -: ad ensure tid for malnutrition -: ChemoRx per oncology team. -: replace and recheck potassium * . Review of Systems - Review of Systems Constitutional: weakness, malaise Eyes: negative: Pain, Vision Change, Conjunctivae Inflammation, Eyelid Inflammation, Redness, Other ENT: negative: Ear Pain, Ear Discharge, Nose Pain, Nose Discharge, Nose Congestion, Mouth Pain, Mouth Swelling, Throat Pain, Throat Swelling, Other Respiratory: Shortness of Breath, SOB with Excertion. negative: Cough, Dry, Hemoptysis, Pleuritic Pain, Sputum, Wheezing Cardiovascular: negative: chest pain, palpitations, orthopnea, paroxysmal nocturnal dyspnea, edema, light headedness, other Gastrointestinal: Nausea. negative: Vomiting, Abdominal Pain, Diarrhea, Constipation, Melena, Hematochezia, Other Genitourinary: negative: Dysuria, Frequency, Incontinence, Hematuria, Retention , Other Musculoskeletal: negative: Neck Pain, Shoulder Pain, Arm Pain, Back Pain, Hand Pain, Leg Pain, Foot Pain, Other Skin: negative: Rash, Lesions, Alan, Bruising, Other Neurological: negative: Weakness, Numbness, Incoordination, Change in Speech, Confusion, Seizures, Other - Medications/Allergies Allergies/Adverse Reactions: Allergies Allergy/AdvReac Type Severity Reaction Status Date / Time Penicillins Allergy Unknown Verified 07/19/17 17:38 Cephalosporins Allergy Verified 07/19/17 17:38 Medications: Current Medications Acetaminophen (Tylenol) 650 mg PO Q4H PRN PRN Reason: Headache/Fever or Pain Hydrocodone Bitart/Acetaminophen ([place] 5/325) 1 tab PO Q4H PRN PRN Reason: Moderate Pain (4-6) Last Admin: 07/20/17 09:22 Dose: 1 tab Albuterol/Ipratropium (Duoneb) 3 ml NEB [id number] PRN PRN Reason: SOB &/or Wheezing Last Admin: 07/19/17 19:55 Dose: 3 ml Hydralazine HCl (Apresoline) 10 mg SLOW IVP Q4H PRN PRN Reason: Systolic BP > 180 Hydrochlorothiazide (Hydrochlorothiazide) 12.5 mg PO MoWeFr@0900 [facility] Vancomycin HCl 1 gm/ Device 200 mls @ 200 mls/hr IVPB 1200,2359 [facility] Last Admin: 07/20/17 12:01 Dose: 200 mls Potassium Chloride/Sodium Chloride (Ns 0.9% W/ 40 Meq Kcl) 1,000 mls @ 75 mls/ hr IV .[id number] [facility] Last Admin: 07/19/17 23:18 Dose: 1,000 mls Meropenem 1 gm/ Miscellaneous (Medication) 50 mls @ 100 mls/hr IVPB Q8HR [facility] Last Admin: 07/20/17 13:36 Dose: 50 mls Lactulose (Lactulose) 20 gm PO DAILYPRN PRN PRN Reason: Constipation Levothyroxine Sodium (Synthroid) 25 mcg PO DAILY [facility] Last Admin: 07/20/17 09:21 Dose: 25 mcg Lorazepam (Ativan) 0.5 mg PO Q4H PRN PRN Reason: Anxiety/Agitation Magnesium Hydroxide (Milk Of Magnesium) 30 ml PO DAILYPRN PRN PRN Reason: Constipation Miscellaneous Medication (Pharmacy To Dose) 1 each IVPB ONE PRN PRN Reason: DOSING Stop: 08/18/17 17:53 Ondansetron HCl (Zofran Odt) 4 mg PO Q6H PRN PRN Reason: Nausea/Vomiting Last Admin: 07/19/17 21:40 Dose: 4 mg Ondansetron HCl (Zofran) 4 mg IVP Q6H PRN PRN Reason: Nausea/Vomiting Pantoprazole Sodium (Protonix) 40 mg PO 2100 [facility] Last Admin: 07/19/17 20:37 Dose: 40 mg Sodium Chloride (Flush - Normal Saline) 10 ml IVF PRN PRN PRN Reason: Saline Flush Valacyclovir HCl (Valtrex) 500 mg PO DAILY [facility] Last Admin: 07/20/17 09:21 Dose: 500 mg
[2017-07-20] MEDS ORDERED: traZODone HCl 50 MG TAB PO PRN (14:20)
[2017-07-20] MEDS ORDERED: Melatonin 3 MG TAB PO PRN (14:20)
[2017-07-20] MEDS ORDERED: Potassium Chloride 40 MEQ in Premix Bag 1 BAG IVPB SCH (14:30)
[2017-07-20] MEDS ORDERED: Potassium Chloride 40 MEQ, Admixture Fee 1 EACH in Sodium Chloride 0.9% 250 ML 250 ML IVPB SCH (14:30)
--- NOTE | 2017-07-20 15:16 | CT ---
CT THORAX WITHOUT IV CONTRAST: INDICATIONS: Followup of nodular lesions. COMPARISON: CTA thorax dated 05/21/2017. FINDINGS: There are more prominent areas of peripheral ground glass nodular opacities seen throughout both lung s. More patchy areas of more extensive consolidation are seen within both lower lobes but to a lesse r extent than seen on the comparison examination of April 2017. There is a tiny right pleural effu tremayne. There are few mildly prominent lymph nodes seen within the mediastinum, none of which are path ologically enlarged based on size criteria. The extent of the shotty appearing lymphadenopathy withi n the upper mediastinum appears more prominent on the prior exam, particularly with small lymph nodes within the anterior mediastinum. The largest lymph node is seen within the right paratracheal regio n, which is stable in size with the comparison examination, measuring 9.7 mm. There are coronary art keven calcifications. The visualized upper abdomen is unremarkable. Numerous mixed lucent and sclerot ic lesions involving the ribs as well as the axial skeleton and external body, consistent with the pa tient's history of myeloma, are similar appearing. IMPRESSION: 1. Worsening peripheral ground glass air space opacities throughout both lungs suspicious atypical i nfectious process. The extent of the consolidation within the right lower lobe has improved but stil l persists. There is a tiny right pleural effusion. 2. Increased number of nonpathologically enlarged lymph nodes within the superior and anterior media stinum may be reactive in nature. 3. Diffuse myelomatous involvement of the visualized skeletal structures. POS: [facility]
--- NOTE | 2017-07-20 15:22 | CON ---
DATE OF CONSULTATION: 07/20/2017 REASON FOR CONSULTATION: Neutropenia with fever. HISTORY OF PRESENT ILLNESS: A 66-year-old patient whom I had seen in April this year with a histor y of multiple myeloma for a few years now, initially diagnosed in [facility] refe rred to [facility] with 2 stem cell transplants back to back and now with recrudescence treated in [place] initially transitioned to Dr. Hugo and is currently on Proteasome inhibitor last admissio n in April when he presented with pancytopenia, fever with pneumonia and the usual opportunistic in fections were considered. He did have a CT scan of the chest, which demonstrated extensive opacity t hroughout upper lobe lingula, right middle lobe and lower lobes. All the opportunistic pathogen assa ys were negative. The patient was discharged on azithromycin and levofloxacin, and continued on Valt beau. The patient's white cell count peaked at 5.0 on the day of discharge. At this time, the patien russel received his last session of chemotherapy on Wednesday last week had a transfusion the next day and russel escobar developed fever 4 days before was given levofloxacin and felt okay the next few days and then fel russel weak with worsening cough with some blood in it, has had some nosebleed and was brought to the [facility] room and admitted. BP 129/72, heart rate 90, respiratory rate 20, temperature 98.9, 2+ edema i n lower extremities. Some petechia noted. Initial white cell count 0.4 with no neutrophils to speak of, hemoglobin 9.2 and platelets 5000. Urinalysis with large blood, but no white cells obviously. Currently, Mr. Childers is awake, somewhat apathetic, but he is oriented, follows commands and responds t o certain questions in a monosyllabic fashion. Denies headaches, no visual symptoms, sore throat, od ynophagia, dysphagia and little bit of neck pain in the back. No back pain. A little bit of cough, but not as much as before. Not much sputum at this time. No chest pain, no abdominal pain, no diarr hea, no genitourinary symptoms, voiding without difficulty. No joint symptoms. PAST MEDICAL HISTORY: Multiple myeloma, 2 stem cell transplants, hypertension, hypothyroidism, pancy topenia, diverticulosis, hyperlipidemia, recent admission for neutropenia, pneumonia with improvement . ALLERGIES: PENICILLIN with rash. PRESENT MEDICATIONS: Tylenol, [place], Maalox, azithromycin, Tums, Colace, Synthroid, had been on levo floxacin and vancomycin. SOCIAL HISTORY: Lives in [place], had been working until recently. FAMILY HISTORY: Noncontributory. PHYSICAL EXAMINATION: VITAL SIGNS: T-max 100.2, blood pressure 130/60, pulse is 92, respirations 18, O2 saturation 98%. GENERAL: In no distress. Apathetic. A few areas of bruising in the extremities. Petechiae noted. No [place] catheter, peripheral IV access. No lymphadenopathy. Alopecia. HEENT: Ocular movements conjugate. Pale conjunctivae. Nasal passages patent. Oral cavity with not remarkable. NECK: Supple, no jugular distention. LUNGS: With symmetric air entry. Few crackles in the lower bases. No wheezing noted. Crackles are actually heard all the way to the mid lung rivero, right and left side. ABDOMEN: Soft, not distended or tender. No ascites. : No genital abnormalities. EXTREMITIES: A 3+ edema lower extremities. Pulses are 1+ dorsalis pedis. He is able to move all ex tremities, but is diffusely weak. NEUROLOGIC: He is oriented, in no distress, follows commands, monosyllabic answers, appears depresse d. LABORATORY: White cell count up to 0.7, hemoglobin 10, platelets 23,000, 48% lymphocytes, 8% bands. Chemistry with creatinine 0.98. Liver profile normal. CK normal. Albumin 1.8. Urinalysis with 10 0 protein, 0-3 wbc's. Four sets of blood cultures are pending. All the assays from last visit are n egative. C. diff negative. Chest x-ray: Diffuse bilateral infiltrates. I ordered a CT of chest, w hich has been done. Still with the scattered areas of pneumonitis, some of nodular shaped in the rig ht upper lobe still present. ASSESSMENT: Multiple myeloma with recurrence, now on Proteasome inhibitor therapy, Decadron and recu rrent neutropenia, now with fever, cough with those nodular areas of pneumonitis which appeared to be present since last admission in April. DISCUSSION: Patient has acute neutropenia with fever and will be covered for that with broad spectru m coverage. We will switch him to meropenem and vancomycin. Regarding the nodular areas of pneumoni tis, repeat the opportunistic assays but this could represent either opportunistic pathogen or a reji gnancy.
[2017-07-20] MEDS: NS 0.9% w/ 40 MEQ KCL 1,000 ML IV SCH (20:39)
[2017-07-20] MEDS: MEROPENEM 1 GM/50 ML 1 GM in Premix Bag 1 BAG IVPB SCH (21:13)
[2017-07-20 23:40] LABS: Vancomycin, Trough 15.1 ug/mL
[2017-07-21] MEDS: Vancomycin HCl 1 GM in Premix Bag 1 BAG IVPB SCH ×2 (00:19→15:20)
[2017-07-21] MEDS: MEROPENEM 1 GM/50 ML 1 GM in Premix Bag 1 BAG IVPB SCH ×3 (05:33→21:27)
[2017-07-21 06:06] LABS: Hemoglobin 8.4 g/dL (14.0-18.0); Mean Corpuscular HGB CONC 33.3 g/dL (32.0-36.0); Mean Corpuscular Hemoglobin 29.5 pg (27.0-31.0); Mean Corpuscular Volume 88.7 fl (80.0-94.0); Platelet Count 16 thou/uL (130-400); RBC Distribution Width 13.8 % (11.5-14.5); Red Blood Cell (RBC) Count 2.86 mill/uL (4.70-6.10); White Blood Cell (WBC) Count 0.6 thou/uL (4.8-10.8)
[2017-07-21 06:45] LABS: Anisocytosis SLIGHT = 6-15 cells (100X) (0-5/hpf); Band 14 % (5-11); Lymphocytes 22 % (21-51); MDiff Complete? YES; Macrocytosis SLIGHT = 6-15 cells (100X) (0-5/hpf); Monocytes 16 % (0-10); Neutrophil 49 % (42-75); PLT Morphology Comment Appears Adequate
[2017-07-21] MEDS ORDERED: Potassium Chloride 20 MEQ/100 ML PREMIX BAG IVPB SCH (09:00)
[2017-07-21] MEDS ORDERED: Non-Formulary Item 1 EACH (Hydrochlorothiazide [Hydrochlorothiazide] 12.5 MG) PO SCH ×2 (09:00)
[2017-07-21] MEDS: valACYclovir 500 MG TAB PO SCH ×2 (09:26)
[2017-07-21] MEDS: Hydrochlorothiazide 25 MG TAB PO SCH (09:26)
[2017-07-21] MEDS: Levothyroxine Sodium 25 MCG TAB PO SCH (09:26)
[2017-07-21] MEDS ORDERED: Magnesium Sulfate 1 GM, Admixture Fee 1 EACH in Sodium Chloride 0.9% 100 ML IVPB SCH (10:15)
[2017-07-21] MEDS: NS 0.9% w/ 40 MEQ KCL 1,000 ML IV SCH (12:43)
--- NOTE | 2017-07-21 14:03 | PDOC.PN ---
- Subjective Encounter Start Date: 07/21/17 Encounter Start Time: 13:59 Subjective: wants to go home.still SOB,weak,coughing -: care discussed w - Objective Resuscitation Status: Resuscitation Status FULL:Full Resuscitation MAR Reviewed: Yes Vital Signs & Weight: Vital Signs (12 hours) Temp Pulse Resp BP BP Pulse Ox 07/21/17 11:10 99.1 F 90 22 H 132/75 98 07/21/17 08:00 98.1 F 87 16 99 07/21/17 07:58 98.1 F 87 16 138/79 99 07/21/17 03:31 98.0 F 84 16 133/68 98 Weight Weight 183 lb 13.848 oz I&O: 07/20/17 07/21/17 07/22/17 06:59 06:59 06:59 Intake Total 2300 2250 Output Total 600 1350 Balance 1700 900 Result Diagrams: 07/21/17 05:34 07/20/17 05:33 Additional Labs: Microbiology 07/20/17 19:27 Stool C. difficile GDH Antigen & Toxins - Final 07/20/17 10:08 Serum Cryptococcal Antigen - Final 07/19/17 11:10 Venous blood - Right Arm Blood Culture - Preliminary Specimen has been received and culture in progress. No Growth to date. 07/19/17 11:10 Venous blood - Right Arm Blood Culture - Preliminary NO GROWTH AT 48 HOURS 07/19/17 11:01 Venous blood - Right Arm Blood Culture - Preliminary Specimen has been received and culture in progress. No Growth to date. 07/19/17 11:01 Venous blood - Right Arm Blood Culture - Preliminary NO GROWTH AT 48 HOURS 07/19/17 10:17 Venous blood - Left Hand Blood Culture - Preliminary Specimen has been received and culture in progress. No Growth to date. 07/19/17 10:17 Venous blood - Left Hand Blood Culture - Preliminary NO GROWTH AT 48 HOURS 07/19/17 10:12 Venous blood - Right Hand Blood Culture - Preliminary Specimen has been received and culture in progress. No Growth to date. 07/19/17 10:12 Venous blood - Right Hand Blood Culture - Preliminary NO GROWTH AT 48 HOURS Laboratory Tests 07/19/17 07/19/17 07/19/17 10:08 15:40 17:49 Troponin I 0.012 0.010 Less than 0.010 Radiology Reviewed by me: Yes (Chest CT-B/L ground glass opacities,wali PNA) Phys Exam - Physical Examination Constitutional: NAD HEENT: PERRLA, moist MMs, sclera anicteric, TM's clear, oral pharynx no lesions Neck: no nodes, no JVD, supple, full ROM Respiratory: no wheezing, no rales, no rhonchi, clear to auscultation bilateral coarse breath sounds Cardiovascular: RRR, no significant murmur, no rub, gallop Gastrointestinal: soft, non-tender, no distention, positive bowel sounds Musculoskeletal: no edema, pulses present Neurological: non-focal, normal sensation, moves all 4 limbs Psychiatric: normal affect, A&O x 3 Skin: no rash Dx/Plan (1) Neutropenic fever Code(s): D70.9 - NEUTROPENIA, UNSPECIFIED; R50.81 - FEVER PRESENTING WITH CONDITIONS CLASSIFIED ELSEWHERE Status: Acute (2) Pancytopenia due to antineoplastic chemotherapy Code(s): D61.810 - ANTINEOPLASTIC CHEMOTHERAPY INDUCED PANCYTOPENIA; T45.1X5A - ADVERSE EFFECT OF ANTINEOPLASTIC AND IMMUNOSUP DRUGS, INIT Status: Acute (3) Pneumonia, primary atypical Code(s): J18.9 - PNEUMONIA, UNSPECIFIED ORGANISM Status: Suspected (4) Hypokalemia Code(s): E87.6 - HYPOKALEMIA Status: Acute (5) Hypertension Code(s): I10 - ESSENTIAL (PRIMARY) HYPERTENSION Status: Acute (6) Hypothyroidism Code(s): E03.9 - HYPOTHYROIDISM, UNSPECIFIED Status: Acute (7) Multiple myeloma Code(s): C90.00 - MULTIPLE MYELOMA NOT HAVING ACHIEVED REMISSION Status: Acute Qualifiers: Multiple myeloma remission status: not in remission Qualified Code(s): C90.00 - Multiple myeloma not having achieved remission Comment: with bone mets (8) Protein-calorie malnutrition, moderate Code(s): E44.0 - MODERATE PROTEIN-CALORIE MALNUTRITION Status: Chronic - Plan plan discussed w/ family, continue antibiotics, PT/OT, criminal justice social worker, DVT proph w/SCDs Platelet counts low again.defer to oncology if transfusion needed -: no active bleed.monitor.WBC stable.neutropenic precautions -: empiric ABx. Follow Cx.wali PNA,atypical.ID following -: BM biospsy today.Add OT,PT w HH if needed -: daily labs.not stable for DC yet * . Review of Systems - Review of Systems Constitutional: weakness, malaise. negative: fever, chills, sweats, other Eyes: negative: Pain, Vision Change, Conjunctivae Inflammation, Eyelid Inflammation, Redness, Other ENT: negative: Ear Pain, Ear Discharge, Nose Pain, Nose Discharge, Nose Congestion, Mouth Pain, Mouth Swelling, Throat Pain, Throat Swelling, Other Respiratory: Cough, SOB with Excertion. negative: Dry, Shortness of Breath, Hemoptysis, Pleuritic Pain, Sputum, Wheezing Cardiovascular: negative: chest pain, palpitations, orthopnea, paroxysmal nocturnal dyspnea, edema, light headedness, other Gastrointestinal: negative: Nausea, Vomiting, Abdominal Pain, Diarrhea, Constipation, Melena, Hematochezia, Other Genitourinary: negative: Dysuria, Frequency, Incontinence, Hematuria, Retention , Other Musculoskeletal: negative: Neck Pain, Shoulder Pain, Arm Pain, Back Pain, Hand Pain, Leg Pain, Foot Pain, Other Skin: negative: Rash, Lesions, Alan, Bruising, Other Neurological: negative: Weakness, Numbness, Incoordination, Change in Speech, Confusion, Seizures, Other - Medications/Allergies Allergies/Adverse Reactions: Allergies Allergy/AdvReac Type Severity Reaction Status Date / Time Penicillins Allergy Unknown Verified 07/19/17 17:38 Cephalosporins Allergy Verified 07/19/17 17:38 Medications: Current Medications Acetaminophen (Tylenol) 650 mg PO Q4H PRN PRN Reason: Headache/Fever or Pain Hydrocodone Bitart/Acetaminophen ([place] 5/325) 1 tab PO Q4H PRN PRN Reason: Moderate Pain (4-6) Last Admin: 07/20/17 09:22 Dose: 1 tab Albuterol/Ipratropium (Duoneb) 3 ml NEB [id number] PRN PRN Reason: SOB &/or Wheezing Last Admin: 07/19/17 19:55 Dose: 3 ml Hydralazine HCl (Apresoline) 10 mg SLOW IVP Q4H PRN PRN Reason: Systolic BP > 180 Hydrochlorothiazide (Hydrochlorothiazide) 12.5 mg PO MoWeFr@0900 [facility] Last Admin: 07/21/17 09:26 Dose: 12.5 mg Vancomycin HCl 1 gm/ Device 200 mls @ 200 mls/hr IVPB 1200,2359 [facility] Last Admin: 07/21/17 00:19 Dose: 200 mls Potassium Chloride/Sodium Chloride (Ns 0.9% W/ 40 Meq Kcl) 1,000 mls @ 75 mls/ hr IV .[id number] [facility] Last Admin: 07/21/17 12:43 Dose: 1,000 mls Meropenem 1 gm/ Device 50 mls @ 100 mls/hr IVPB Q8HR [facility] Last Admin: 07/21/17 05:33 Dose: 50 mls Lactulose (Lactulose) 20 gm PO DAILYPRN PRN PRN Reason: Constipation Levothyroxine Sodium (Synthroid) 25 mcg PO DAILY [facility] Last Admin: 07/21/17 09:26 Dose: 25 mcg Lorazepam (Ativan) 0.5 mg PO Q4H PRN PRN Reason: Anxiety/Agitation Magnesium Hydroxide (Milk Of Magnesium) 30 ml PO DAILYPRN PRN PRN Reason: Constipation Melatonin (Melatonin) 3 mg PO HS PRN PRN Reason: Insomnia Last Admin: 07/20/17 20:56 Dose: 3 mg Miscellaneous Medication (Pharmacy To Dose) 1 each IVPB ONE PRN PRN Reason: DOSING Stop: 08/18/17 17:53 Ondansetron HCl (Zofran Odt) 4 mg PO Q6H PRN PRN Reason: Nausea/Vomiting Last Admin: 07/19/17 21:40 Dose: 4 mg Ondansetron HCl (Zofran) 4 mg IVP Q6H PRN PRN Reason: Nausea/Vomiting Pantoprazole Sodium (Protonix) 40 mg PO 2100 [facility] Last Admin: 07/20/17 20:33 Dose: 40 mg Sodium Chloride (Flush - Normal Saline) 10 ml IVF PRN PRN PRN Reason: Saline Flush Trazodone HCl (Desyrel) 50 mg PO HS PRN PRN Reason: Insomnia Valacyclovir HCl (Valtrex) 500 mg PO DAILY [facility] Last Admin: 07/21/17 09:26 Dose: 500 mg
--- NOTE | 2017-07-21 15:59 | CT ---
CT GUIDED BONE MARROW BIOPSY: Date: 07-21-17 History: 66-year-old male with multiple myeloma, now presenting with pancytopenia. Technique: Signed informed consent was obtained. Patient was placed prone on CT table. The skin over the right p osterior superior iliac spine was prepped and draped in the usual sterile fashion. 25 gauge needle wa s used to apply buffered Lidocaine superficially, then at the periosteum of the right PSIS. The entir e procedure was performed under step CT guidance. 12 gauge bone marrow biopsy needle was purchased th rough the cortical bone. However, no aspirate could be obtained. Next, the mechanical drill was used to advance the bone marrow biopsy needle from a medial to lateral angulated, posterior to anterior di rection, a distance of 4 cm, yielding a small, very short, very hard piece of bone. This was placed o n a slide and given to Ayesha, the echo vascular technologist. Patient tolerated the procedure well. No s ignificant bleeding or any other complication. FINDINGS: The limited images of the pelvis demonstrate a large number of osteolytic lesions in the sacrum and b ilateral ilium, consistent with multiple myeloma. The 12 gauge bone marrow biopsy needle distal tip i s embedded in the cortex of the right PSIS prior to the drilling. IMPRESSION: 1. Technically successful 12 gauge random core biopsy of the right ilium, through the right posterior superior iliac spine, yielding a very short, very hard fragment of bone. 2. The aspirate was unsuccessful. 3. Evidence for multiple myeloma. POS: [facility]
[2017-07-22] MEDS ORDERED: Vancomycin HCl 1 GM in Premix Bag 1 BAG IVPB SCH (03:00)
[2017-07-22] MEDS: MEROPENEM 1 GM/50 ML 1 GM in Premix Bag 1 BAG IVPB SCH ×3 (06:29→20:46)
[2017-07-22 06:51] LABS: Hemoglobin 8.4 g/dL (14.0-18.0); Mean Corpuscular HGB CONC 33.1 g/dL (32.0-36.0); Mean Corpuscular Hemoglobin 29.5 pg (27.0-31.0); Mean Corpuscular Volume 89.1 fl (80.0-94.0); Mean Platelet Volume 12.7 fL (7.4-10.4); Platelet Count 10 thou/uL (130-400); RBC Distribution Width 13.8 % (11.5-14.5); Red Blood Cell (RBC) Count 2.84 mill/uL (4.70-6.10)
[2017-07-22 07:01] LABS: Anion Gap 10 mmol/L (10-20); BUN (Urea Nitrogen) 19 mg/dL (8.4-25.7); Calc. Creatinine Clearance 78 mL/min (70-130); Calcium 7.8 mg/dL (7.8-10.44); Carbon Dioxide 21 mmol/L (23-31); Chloride 108 mmol/L (98-107); Estimated GFR-MDRD 65; Glucose 107 mg/dL (80-115); Potassium 3.5 mmol/L (3.5-5.1); Sodium 135 mmol/L (136-145)
[2017-07-22 07:39] LABS: Band 24 % (5-11); Lymphocytes 24 % (21-51); MDiff Complete? YES; Monocytes 4 % (0-10); Neutrophil 48 % (42-75); PLT Morphology Comment Appears Decreased; Toxic Granulation MODERATE
[2017-07-22] MEDS ORDERED: Senokot 8.6 MG TAB PO PRN (08:17)
[2017-07-22] MEDS ORDERED: Sodium Chloride 0.65% Nasal 44 ML BOT EA NARE PRN (08:17)
[2017-07-22] MEDS ORDERED: Mag-Al 1200 mg/1200 mg/30 ML UDCUP PO PRN (08:17)
[2017-07-22] MEDS ORDERED: Eucerin (Mineral Oil/Petrolatum,White) 30 gm Jar TOP PRN (08:17)
[2017-07-22] MEDS ORDERED: Loratadine 10 MG TAB PO PRN (08:17)
[2017-07-22] MEDS ORDERED: Artificial Tears 18 DROP/0.9 ML EA EYE PRN (08:17)
[2017-07-22] MEDS ORDERED: Diabetic Tussin 200 MG/10 ML UDCUP PO PRN (08:17)
[2017-07-22] MEDS ORDERED: Chloraseptic Spray 180 ml Bottle PO PRN (08:17)
[2017-07-22] MEDS ORDERED: Loperamide HCl 2 MG CAP PO PRN (08:17)
[2017-07-22 08:39] LABS: Magnesium 1.5 mg/dL (1.6-2.6); Phosphorus 2.8 mg/dL (2.3-4.7)
[2017-07-22] MEDS ORDERED: Magnesium Sulfate 4 GM in Sodium Chloride 0.9% 250 ML 250 ML IVPB SCH (09:00)
--- NOTE | 2017-07-22 10:07 | PDOC.PN ---
- Subjective Encounter Start Date: 07/22/17 Encounter Start Time: 07:00 -: old records requested/rev pt is weak, platelet count low today, still needs oxygen - Objective Resuscitation Status: Resuscitation Status FULL:Full Resuscitation MAR Reviewed: Yes Vital Signs & Weight: Vital Signs (12 hours) Temp Pulse Resp BP BP Pulse Ox 07/22/17 08:00 97.3 F L 91 24 H 147/81 H 99 07/22/17 03:54 97.6 F 92 16 140/79 97 07/21/17 23:27 97.5 F L 96 16 123/65 97 Weight Weight 183 lb 13.848 oz I&O: 07/21/17 07/22/17 07/23/17 06:59 06:59 06:59 Intake Total 2250 2500 Output Total 1350 450 Balance 900 2049 Result Diagrams: 07/22/17 06:14 07/22/17 06:14 Phys Exam - Physical Examination Constitutional: NAD HEENT: PERRLA, moist MMs, sclera anicteric Neck: no JVD, supple Respiratory: no wheezing, no rhonchi basilar rales Cardiovascular: RRR, no significant murmur, no rub Gastrointestinal: soft, non-tender, no distention, positive bowel sounds Musculoskeletal: pulses present, edema present Neurological: non-focal, normal sensation, moves all 4 limbs Psychiatric: normal affect, A&O x 3 Skin: no rash, normal turgor Dx/Plan (1) Atypical pneumonia Code(s): J18.9 - PNEUMONIA, UNSPECIFIED ORGANISM Status: Acute (2) Hypokalemia Code(s): E87.6 - HYPOKALEMIA Status: Acute (3) Hypomagnesemia Code(s): E83.42 - HYPOMAGNESEMIA Status: Acute (4) Pancytopenia due to antineoplastic chemotherapy Code(s): D61.810 - ANTINEOPLASTIC CHEMOTHERAPY INDUCED PANCYTOPENIA; T45.1X5A - ADVERSE EFFECT OF ANTINEOPLASTIC AND IMMUNOSUP DRUGS, INIT Status: Acute (5) Hypertension Code(s): I10 - ESSENTIAL (PRIMARY) HYPERTENSION Status: Chronic (6) Hypothyroidism Code(s): E03.9 - HYPOTHYROIDISM, UNSPECIFIED Status: Chronic (7) Multiple myeloma Code(s): C90.00 - MULTIPLE MYELOMA NOT HAVING ACHIEVED REMISSION Status: Chronic Qualifiers: Multiple myeloma remission status: not in remission Qualified Code(s): C90.00 - Multiple myeloma not having achieved remission Comment: with bone mets (8) Protein-calorie malnutrition, moderate Code(s): E44.0 - MODERATE PROTEIN-CALORIE MALNUTRITION Status: Chronic - Plan cont current plan of care, plan discussed w/ family, continue antibiotics, PT/OT * continue meropenam and vancomycin * will replace magnesium sulfate * platelet transfusion will defer to oncology * continue to monitor * high risk for readmission * medication reviewed as below * symptomatic treatment * discussed with . Review of Systems - Review of Systems Constitutional: weakness. negative: fever, chills, sweats, malaise, other ENT: negative: Ear Pain, Ear Discharge, Nose Pain, Nose Discharge, Nose Congestion, Mouth Pain, Mouth Swelling, Throat Pain, Throat Swelling, Other Respiratory: Cough, SOB with Excertion. negative: Dry, Shortness of Breath, Hemoptysis, Pleuritic Pain, Sputum, Wheezing Cardiovascular: negative: chest pain, palpitations, orthopnea, paroxysmal nocturnal dyspnea, edema, light headedness, other Gastrointestinal: negative: Nausea, Vomiting, Abdominal Pain, Diarrhea, Constipation, Melena, Hematochezia, Other Genitourinary: negative: Dysuria, Frequency, Incontinence, Hematuria, Retention , Other Musculoskeletal: negative: Neck Pain, Shoulder Pain, Arm Pain, Back Pain, Hand Pain, Leg Pain, Foot Pain, Other Skin: negative: Rash, Lesions, Alan, Bruising, Other - Medications/Allergies Allergies/Adverse Reactions: Allergies Allergy/AdvReac Type Severity Reaction Status Date / Time Penicillins Allergy Unknown Verified 07/19/17 17:38 Cephalosporins Allergy Verified 07/19/17 17:38 Medications: Current Medications Acetaminophen (Tylenol) 650 mg PO Q4H PRN PRN Reason: Headache/Fever or Pain Hydrocodone Bitart/Acetaminophen ([place] 5/325) 1 tab PO Q4H PRN PRN Reason: Moderate Pain (4-6) Last Admin: 07/20/17 09:22 Dose: 1 tab Al Hydroxide/Mg Hydroxide (Maalox) 15 ml PO Q4H PRN PRN Reason: Heartburn or Indigestion Albuterol/Ipratropium (Duoneb) 3 ml NEB T1EN-WL PRN PRN Reason: SOB &/or Wheezing Last Admin: 07/19/17 19:55 Dose: 3 ml Artificial Tears (Tears Naturale) 0 drop EA EYE PRN PRN PRN Reason: Dry Eyes Famotidine (Pepcid) 20 mg PO BID [facility] Guaifenesin (Robitussin Sf) 200 mg PO Q4H PRN PRN Reason: Cough Hydralazine HCl (Apresoline) 10 mg SLOW IVP Q4H PRN PRN Reason: Systolic BP > 180 Hydrochlorothiazide (Hydrochlorothiazide) 12.5 mg PO MoWeFr@0900 [facility] Last Admin: 07/21/17 09:26 Dose: 12.5 mg Potassium Chloride/Sodium Chloride (Ns 0.9% W/ 40 Meq Kcl) 1,000 mls @ 75 mls/ hr IV .[id number] [facility] Last Admin: 07/21/17 12:43 Dose: 1,000 mls Meropenem 1 gm/ Device 50 mls @ 100 mls/hr IVPB Q8HR [facility] Last Admin: 07/22/17 06:29 Dose: 50 mls Vancomycin HCl 1 gm/ Device 200 mls @ 200 mls/hr IVPB 0300,1500 [facility] Last Admin: 07/22/17 02:49 Dose: 200 mls Magnesium Sulfate 4 gm/ Sodium (Chloride) 258 mls @ 86 mls/hr IVPB NOW [facility] Stop: 07/22/17 13:00 Lactulose (Lactulose) 20 gm PO DAILYPRN PRN PRN Reason: Constipation Levothyroxine Sodium (Synthroid) 25 mcg PO DAILY [facility] Last Admin: 07/21/17 09:26 Dose: 25 mcg Loperamide HCl (Imodium) 2 mg PO PRN PRN PRN Reason: Diarrhea/Loose Stools Loratadine (Claritin) 10 mg PO DAILYPRN PRN PRN Reason: Sinus Symptoms Lorazepam (Ativan) 0.5 mg PO Q4H PRN PRN Reason: Anxiety/Agitation Magnesium Hydroxide (Milk Of Magnesium) 30 ml PO DAILYPRN PRN PRN Reason: Constipation Melatonin (Melatonin) 3 mg PO HS PRN PRN Reason: Insomnia Last Admin: 07/20/17 20:56 Dose: 3 mg Mineral Oil/White Petrolatum (Eucerin Cream) 0 gm TOP BIDPRN PRN PRN Reason: Dry Skin Miscellaneous Medication (Pharmacy To Dose) 1 each IVPB ONE PRN PRN Reason: DOSING Stop: 08/18/17 17:53 Ondansetron HCl (Zofran Odt) 4 mg PO Q6H PRN PRN Reason: Nausea/Vomiting Last Admin: 07/19/17 21:40 Dose: 4 mg Ondansetron HCl (Zofran) 4 mg IVP Q6H PRN PRN Reason: Nausea/Vomiting Pantoprazole Sodium (Protonix) 40 mg PO 2100 [facility] Last Admin: 07/21/17 20:17 Dose: 40 mg Phenol (Chloraseptic [place] 180 Ml Bot) 0 ml PO PRN PRN PRN Reason: Sore Throat Senna (Senokot) 2 tab PO HSPRN PRN PRN Reason: Constipation Sodium Chloride (Flush - Normal Saline) 10 ml IVF PRN PRN PRN Reason: Saline Flush Sodium Chloride ([place] Nasal [place] 0.65%) 0 ml EA NARE QIDPRN PRN PRN Reason: Nasal Congestion Trazodone HCl (Desyrel) 50 mg PO HS PRN PRN Reason: Insomnia Valacyclovir HCl (Valtrex) 500 mg PO DAILY [facility] Last Admin: 07/21/17 09:26 Dose: 500 mg
[2017-07-22] MEDS: NS 0.9% w/ 40 MEQ KCL 1,000 ML IV SCH ×2 (10:30→14:22)
[2017-07-22] MEDS: valACYclovir 500 MG TAB PO SCH ×2 (10:31)
[2017-07-22] MEDS: Levothyroxine Sodium 25 MCG TAB PO SCH (10:31)
--- NOTE | 2017-07-22 12:35 | CT ---
CT GUIDED BONE MARROW BIOPSY: Date: 07-21-17 History: 66-year-old male with multiple myeloma, now presenting with pancytopenia. Technique: Signed informed consent was obtained. Patient was placed prone on CT table. The skin over the right p osterior superior iliac spine was prepped and draped in the usual sterile fashion. 25 gauge needle wa s used to apply buffered Lidocaine superficially, then at the periosteum of the right PSIS. The entir e procedure was performed under step CT guidance. 12 gauge bone marrow biopsy needle was purchased th rough the cortical bone. However, no aspirate could be obtained. Next, the mechanical drill was used to advance the bone marrow biopsy needle from a medial to lateral angulated, posterior to anterior di rection, a distance of 4 cm, yielding a small, very short, very hard piece of bone. This was placed o n a slide and given to Ayesha, the automation technologist. Patient tolerated the procedure well. No s ignificant bleeding or any other complication. FINDINGS: The limited images of the pelvis demonstrate a large number of osteolytic lesions in the sacrum and b ilateral ilium, consistent with multiple myeloma. The 12 gauge bone marrow biopsy needle distal tip i s embedded in the cortex of the right PSIS prior to the drilling. IMPRESSION: 1. Technically successful 12 gauge random core biopsy of the right ilium, through the right posterior superior iliac spine, yielding a very short, very hard fragment of bone. 2. The aspirate was unsuccessful. 3. Evidence for multiple myeloma.
[2017-07-22] MEDS: Famotidine 20 MG TAB PO SCH ×2 (13:07→20:46)
[2017-07-22 14:43] LABS: Vancomycin, Trough 24.1 ug/mL
[2017-07-22] MEDS: Vancomycin HCl 750 MG in Sodium Chloride 0.9% 250 ML 250 ML IVPB SCH (16:44)
[2017-07-22] MEDS: HYDROcodone/Acetaminophen 5/325 mg Tablet PO PRN (20:44)
[2017-07-23] MEDS: Vancomycin HCl 750 MG in Sodium Chloride 0.9% 250 ML 250 ML IVPB SCH (04:38)
[2017-07-23 05:48] LABS: #Lymphocytes 0.3 thou/uL (1.20-3.40); #Monocytes 0.1 thou/uL (0.11-0.59); #Neutrophils 0.6 thou/uL (1.40-6.50); %Eosinophils 1.1 % (0.0-10.0); %Lymphocytes 31.6 % (21.0-51.0); %Monocytes 7.6 % (0.0-10.0); %Neutrophils 59.7 % (42.0-75.0); Hemoglobin 8.3 g/dL (14.0-18.0); Mean Corpuscular HGB CONC 33.5 g/dL (32.0-36.0); Mean Corpuscular Hemoglobin 29.3 pg (27.0-31.0); Mean Corpuscular Volume 87.3 fl (80.0-94.0); Platelet Count 32 thou/uL (130-400); RBC Distribution Width 13.7 % (11.5-14.5); Red Blood Cell (RBC) Count 2.83 mill/uL (4.70-6.10)
[2017-07-23] MEDS: MEROPENEM 1 GM/50 ML 1 GM in Premix Bag 1 BAG IVPB SCH (06:19)
[2017-07-23 08:06] VITALS: BP 138/84; TEMP 98
[2017-07-23] MEDS: Hydrochlorothiazide 25 MG TAB PO SCH (08:28)
[2017-07-23] MEDS: valACYclovir 500 MG TAB PO SCH ×2 (08:29)
[2017-07-23] MEDS: Famotidine 20 MG TAB PO SCH (08:29)
[2017-07-23] MEDS: Levothyroxine Sodium 25 MCG TAB PO SCH (08:29)
--- NOTE | 2017-07-23 11:24 | DIS ---
PRIMARY CARE PHYSICIAN: [facility] call admission. DATE OF ADMISSION: 07/19/2017 DATE OF DISCHARGE: 07/23/2017 DISCHARGE DISPOSITION: Home. PRIMARY DISCHARGE DIAGNOSES: 1. Atypical pneumonia. 2. Hypokalemia. 3. Hypomagnesemia. 4. Pancytopenia due to chemotherapy. SECONDARY DISCHARGE DIAGNOSES: Multiple myeloma, hypothyroidism, hypertension, protein calorie malnu trition, moderate. PRIMARY PROCEDURE/OPERATION: Bone marrow biopsy under CT guidance. RADIOLOGICAL INVESTIGATION: Chest x-ray, CT chest. SIGNIFICANT LABS: Hemoglobin 8.3, platelets 32. WBC 1.0, creatinine 1.13, magnesium 1.5. Blood cul ture negative. C. diff negative. Cryptococcal antigen negative. DISCHARGE MEDICATIONS: Doxycycline 100 mg p.o. b.i.d. for 7 days, Pepcid 20 mg p.o. b.i.d., hydrochl orothiazide 12.5 mg p.o. Wednesday, Wednesday, Wednesday, [place] 5 one or two tablets q.4 hourly p.r.n., Le vaquin 500 mg p.o. daily for 7 days, Synthroid 25 mcg p.o. daily, Florastor 250 mg p.o. daily, [place] x 500 mg p.o. daily. CONTRAINDICATIONS: None. CODE STATUS: Full. INPATIENT CONSULTANTS: Dr. Florentin Hugo. Oncology was following while in hospital. Dr. Sacha Romo was following while in hospital. TEST RESULTS PENDING ON DISCHARGE: None. ALLERGIES: PENICILLIN, CEPHALOSPORINS. DISCHARGE PLAN: Post hospital, the patient will follow up with primary care physician and Dr. Florentin Hugo and Dr. Vazquez as instructed. HOSPITAL COURSE: The patient is a 66-year-old male who was admitted by Dr. Hernandez. This patient has underlying history of multiple myeloma and he was only on maintenance therapy. He also had recently chemotherapy done for relapse. This admission, the patient was having pancytopenia that was related with multiple myeloma as well as chemotherapy-induced. During this admission, he was given 2 packed units of platelets for a low platelet count. He was admitted for neutropenic fever. ID team, Dr. Vazquez, was following while in hospital. He was given broad spectrum antibiotic therapy with meropene m and vancomycin. His culture remained negative. His C. diff negative. Cryptococcal antigen negati ve. On discharge, we empirically started doxycycline and Levaquin for another 5 days. While in hosp ital, his potassium and magnesium was replaced. His culture remained negative. He is hemodynamicall y stable. During this admission, when we did CT chest, we found that he has atypical ground glass in filtration in lower part of the lung and we treated as if atypical pneumonia. He also had a bone mar row biopsy done during this admission which showed multiple myeloma. On the day of discharge, I saw this patient personally at bedside. I spoke with the patient's a nd the patient about discharge plan. Dr. Hugo is planning to consider hospice for this particular patient if the family and patient agrees because of advanced nature of multiple myeloma. He has low er extremity edema which is related with hypoalbuminemia from multiple myeloma. Overall, this patient is stable for discharge, but he is at high risk for recurrent admission. His p rognosis is poor. All new medication prescription sent to his pharmacy.
[2017-07-23 13:19] LABS: CMV DNA-PCR Test Negative (Negative)
== END 2017-07-23 11:59 | disposition home or self-care (01) | DRG 802 ==
LOC: ERS 09:19 → ERHOLD 11:57 → OBSVTOIN 11:57 → INTOOBSV 11:57 → ONC 17:00
PROVIDERS: ADMIT Internal Medicine; ATTEND Internal Medicine
PROC: 30233R1 Transfusion of Nonautologous Platelets into Peripheral Vein, Percutaneous Approach (ICD-10-PCS; 2017-07-19)
PROC: 0QB23ZX Excision of Right Pelvic Bone, Percutaneous Approach, Diagnostic (ICD-10-PCS; principal; 2017-07-22)
DX: D70.9 Neutropenia, unspecified (principal); J18.9 Pneumonia, unspecified organism; C79.51 Secondary malignant neoplasm of bone; C90.00 Multiple myeloma not having achieved remission; E44.0 Moderate protein-calorie malnutrition; E83.42 Hypomagnesemia; D61.810 Antineoplastic chemotherapy induced pancytopenia; R50.81 Fever presenting with conditions classified elsewhere; I10 Essential (primary) hypertension; E03.9 Hypothyroidism, unspecified; E78.5 Hyperlipidemia, unspecified; T45.1X5A Adverse effect of antineoplastic and immunosuppressive drugs, initial encounter; E87.6 Hypokalemia
CPT/HCPCS: 20225; 36415; 36430; 71045; 71250; 77002; 80048; 80053; 80202; 81003; 81015; 82553; 83735; 84100; 84484; 85025; 85060; 85097; 86850; 86870; 86880; 86900; 86901; 86970; 87040; 87324; 87385; 87449; 87497; 87899; 88305; 88311; 88313; 88341; 88342; 94640; 96365; 96366; J1956; J2185; J3370; J3475; J3480; J7050; J7620; P9035; Q0162